=== PATIENT | female | born 2000 | race Caucasian/White ===

== ENCOUNTER 2020-04-24 16:58 | Inpatient (IN) | payer OTHER, SELFPAY ==
[2020-04-24] VITALS (8 sets, daily range): BP systolic 101–146; BP diastolic 58–90; PULSE 71–127; RESP 16–26; TEMP 36.3–37.1; O2SAT 99–100; BMI 28.9
--- NOTE | ~2020-04-24 | XR_ITS ---
EXAMINATION: XR chest 2V DATE: 04/24/2020 18:21 INDICATION: Chest pain and shortness of breath TECHNIQUE: PA and lateral views of the chest were obtained. COMPARISON: Chest radiograph dated 06/04/2017 FINDINGS: The lungs remain clear with no focal airspace opacities, pulmonary edema, pleural effusion or pneumot horax. The cardiomediastinal silhouette is normal. Visualized bones and soft tissues are unremarkable . IMPRESSION: 1. Normal chest radiograph. Reviewed, dictated and finalized at location H. CTOR MOTION PICTURE IMPRESSION: 1. Normal chest radiograph.
--- NOTE | ~2020-04-24 | CT_ITS ---
EXAMINATION: CT brain wo con DATE: 04/24/2020 18:15 INDICATION: Headache and blurry vision TECHNIQUE: Computed tomography (CT) of the head was performed without intravenous contrast. Sagittal and coronal reconstructions were performed. The mA was adjusted according to patient size. Iterative reconstruction technique was employed. The dose-length product was 605.33 mGy-cm. COMPARISON: None FINDINGS: No acute intracranial hemorrhage, acute infarction or abnormal extra axial fluid collection. Ventricl es are normal and symmetric. No mass/mass effect. The orbits, paranasal sinuses and mastoid air cells are normal. IMPRESSION: 1. Normal head CT. Reviewed, dictated and finalized at location H. OGICAL TECHNICIAN IMPRESSION: 1. Normal head CT.
[2020-04-24 17:13] LABS: Glucose Point of Care 362 (65-105)
--- NOTE | 2020-04-24 17:31 | ECG_ITS ---
Measurements Intervals [place] Rate: 80 P: -2 MD: 128 QRS: 30 QRSD: 96 T: 28 QT: 413 QTc: 479 Interpretive Statements SINUS RHYTHM INCOMPLETE RIGHT BUNDLE BRANCH BLOCK NONSPECIFIC T-WAVE ABNORMALITY- ANTERIOR LEADS BASELINE WANDER- V5 BORDERLINE ECG Electronically Signed On 04-25-2020 8:24:56 LEAD DESIGNER by Errol Corado D.O.
[2020-04-24 17:41] LABS: Basophils Absolute Auto 0.1 K/mm3 (0.0-0.1); Basophils Percent Auto 0.7 % (0.2-1.2); Hematocrit 47.8 % (37.0-47.0); Hemoglobin 16.3 g/dL (12.0-15.0); Immature Granulocyte Absolute 0.05 K/mm3 (0.00-0.031); Immature Granulocyte Percent A 0.3 % (0-0.5); Lymphocytes Absolute Auto 2.21 K/mm3 (0.9-3.2); Mean Corpuscular HGB Conc 34.1 g/dl (32-36); Mean Corpuscular Volume 87.9 fl (80-100); Mean Platelet Volume 9.7 fl (7.4-10.4); Monocytes Absolute Auto 0.5 K/mm3 (0.1-0.6); Monocytes Percent Auto 3.5 % (2.6-8.5); Neutrophils Absolute Auto 11.8 K/mm3 (1.3-6.7); Neutrophils Percent Auto 80.5 % (45.5-73.1); Platelet Count Result 438 k/mm3 (150-375); Red Blood Count 5.44 M/mm3 (4.2-5.4); Red Cell Distribution Width 12.1 % (11.5-14.5); White Blood Count 14.7 K/mm3 (4.5-10.0)
[2020-04-24 17:50] LABS: Alveolar/Arterial O2 Gradient 13.1 mmHg; Base Excess ABG -19.1 mEq/l (+/-2.0); Carboxyhemoglobin 0.7 % THb (0-2.0); Fractional Inspired Oxygen 21 %; Methemoglobin ABG 0.5 %THb (0-1.5); Modified Allen's Test Pass; Oxygen Content ABG 21.5 %vol (16.0-22.0); Oxygen Saturation ABG 97.2 % (95.0-100.0); Oxyhemoglobin 96.7 % THb (90.0-100.0); PCO2 ABG 19.3 mmHg (35.0-45.0); PO2 ABG 113.5 mmHg (80.0-100.0); Reduced Hemoglobin 2.1 %THb (0-5.0); Site Drawn RIGHT RADIAL; Total Hemoglobin 15.7 g/dL (12.0-18.0); pH ABG 7.178 (7.350-7.450)
--- NOTE | 2020-04-24 17:50 | ED.RECABL ---
HPI - Recheck/Abnormal Lab/Rx General Chief Complaint: Recheck/Abnormal Lab/Rx Stated Complaint: dka? Time Seen by Provider: 04/24/20 17:07 Source: patient Mode of arrival: wheelchair Limitations: no limitations History of Present Illness HPI narrative: This is a 20 year female that presents to the ER for nausea and vomiting today. Reports she thinks she is in DKA. Reports chest pain and shortness of breath. Reports her blood sugar has been in the 300s. Reports she has had a headache today with associated blurry vision. Denies fever, cough, abdominal pain, dysuria, hematuria, numbness or weakness. Related Data Home Medications Medication Instructions Recorded Confirmed insulin glargine [Lantus Solostar 50 unit SUBCUT HS 04/24/20 U-100 Insulin] insulin lispro [Admelog SoloStar unit SUBCUT 04/24/20 U-100 Insulin] norgestimate-ethinyl estradiol tablet 04/24/20 [Tri-Sprintec (28)] pen needle, diabetic [BD Mikayla 2nd 04/24/20 04/24/20 Gen Pen Needle] Allergies Allergy/AdvReac Type Severity Reaction Status Date / Time No Known Allergies Allergy Mild Unverified 04/24/20 17:04 Review of Systems Review of Systems: Narrative: CONSTITUTIONAL: Denies fever EYES: Reports visual changes ENT: Denies congestion, sore throat CARDIOVASCULAR: Reports chest pain RESPIRATORY: Reports dyspnea. Denies cough GASTROINTESTINAL: Reports nausea, vomiting. Denies abdominal pain GENITOURINARY: Denies dysuria or hematuria. All systems reviewed & are unremarkable except as noted in HPI and below PMFSH Past Medical History Medical History (Updated 04/24/20 @ 19:36 by Jemma Toney PA-C) History of type 1 diabetes mellitus Social History Social History (Updated 04/24/20 @ 18:01 by Jemma Toney PA-C) Smoking status: Current every day smoker Tobacco type: e-cigarettes/vaping Alcohol intake: never Substance use: current Substance use type: marijuana Gender identity (if verbalized by the patient): Female Exam Narrative: Exam Narrative: GENERAL: Well-appearing, well-nourished, and in no acute distress. HEAD: Normocephalic, atraumatic. EYES: PERRLA and EOMI. ENT: Nares clear, no rhinorrhea or epistaxis. Mucous membranes moist. Oropharynx without tonsillar hypertrophy exudate or other lesions. Bilateral TMs pearly perdomo non-bulging NECK: Supple. No adenopathy or masses. CHEST: Clear to auscultation. No respiratory distress. No wheezes rales or rhonchi HEART: Regular rate and rhythm. No murmur heard. Normal peripheral pulses. ABDOMEN: Soft, nontender, nondistended, normal active bowel sounds. No CVA tenderness EXTREMITIES: Normal range of motion. No edema. Strength equal in bilateral upper and lower extremities (5/5) SKIN: Warm, dry, no rash. NEURO: No focal deficits. Alert and oriented x3. Cranial nerves II through XII grossly intact. Normal [id number]-dsve PSYCH: Normal mood and affect Course Consultations Consultation #1: poke with hospitalist about patient and work-up who accepts admission. Date: 04/24/20 Time: 19:40 Consultation #2: Spoke with Dr. Holland who will consult Date: 04/24/20 Time: 19:41 Vital Signs Vital signs: Vital Signs Temperature 97.3 F L 04/24/20 17:01 Pulse Rate 127 H 04/24/20 17:01 Respiratory Rate 18 04/24/20 17:01 Blood Pressure 146/90 H 04/24/20 17:01 Pulse Oximetry 100 04/24/20 17:01 Temperature 98.1 F 04/24/20 19:15 Pulse Rate 71 04/24/20 19:15 Respiratory Rate 16 04/24/20 19:15 Blood Pressure 112/77 04/24/20 19:15 Pulse Oximetry 100 04/24/20 19:15 MDM - Recheck/Abnormal Lab/Rx MDM Narrative Medical decision making narrative: Patient presents to the emergency department for nausea and vomiting today. Was also reporting chest pain and shortness of breath. Was reporting a headache associated with blurry vision. Tachycardic and hypertensive upon arrival, this normalized with IV fluid administration. She is afebrile and nontoxic-appeari
[2020-04-24 17:51] LABS: Device ROOM AIR
[2020-04-24 17:53] LABS: Alanine Aminotransferase 21 U/L (4-35); Albumin Level 5.2 g/dL (3.5-5.1); Alkaline Phosphatase 129 U/L (38-126); Anion Gap 31 mmol/L (8-16); Aspartate Amino Transferase 28 U/L (14-36); Bilirubin,Total 0.8 mg/dL (0.2-1.3); Blood Urea Nitrogen 9 mg/dL (7-17); Calcium 10.1 mg/dL (8.4-10.2); Carbon Dioxide 6 mmol/L (22-30); Chloride 98 mmol/L (98-107); Estimated CRCL calculation 91 ml/min; Estimated Glomerular Filt Rate > 60; Glucose 403 mg/dL (65-105); Magnesium 1.9 mg/dL (1.6-2.3); Phosphorus 4.7 mg/dL (2.5-4.5); Potassium 4.5 mmol/L (3.4-5.0); Sodium 135 mmol/L (137-145)
[2020-04-24 17:54] LABS: INR 1.1; Prothrombin Time 14.3 Seconds (11.1-14.7)
[2020-04-24 17:55] LABS: Partial Thromboplastin Time 28.5 SECONDS (22.3-36.8)
[2020-04-24 18:05] LABS: D Dimer 0.27 ug/mL (<0.48)
[2020-04-24] MEDS: INSULIN HUMAN REGULAR (*BKC) 100 UNITS/ML 8 UNITS IV PUSH (18:06)
[2020-04-24] MEDS: SODIUM CHLORIDE 0.9% IV 1,000 ML 999 ML IV CONT ×2 (18:06→18:37)
[2020-04-24 18:07] LABS: Troponin I < 0.012 ng/mL (0.000-0.034)
--- NOTE | 2020-04-24 18:10 | PC.NURSE ---
Patient to CT at this time.
[2020-04-24 18:21] LABS: Add Urine Microscopic? YES; Appearance Urine Clear (Clear); Bilirubin Urine Negative (Negative); Blood Urine Negative (Negative); Color Urine Yellow (Yellow); Glucose Urine UA 3+ mg/dL (Negative); Ketones Urine 2+ mg/dL (Negative); Leukocyte Esterase Ur Negative LEU/UL (Negative); Nitrate Urine Negative (Negative); Protein Urine 2+ mg/dL (Negative); RBC Urine 0-2 /hpf (0-2); Specific Grav Ur 1.024 (1.001-1.035); Squamous Epithelial Cell Urine Rare /hpf (Few); Urobilinogen Urine Negative mg/dL (<2.0); WBC Urine 0-3 /hpf
[2020-04-24 18:28] LABS: Beta-Hydroxybutyrate/Acetoacetate 7.12 mmol/L (0.02-0.27)
--- NOTE | 2020-04-24 19:57 | PM.IMHP ---
H&P: HPI History of Present Illness Date/Time: 04/24/20 19:57 Chief complaint: DKA, acute dehydration Narrative: This is a 20 year old type I Diabetic female with known depression who presented to the hospital with a complaint of nausea and vomiting #8 times today. She admits that she hasn't been checking her blood sugars recently as she has been very depressed. On arrival to the ER she was complaining of chest discomfort, shortness of breath, and headache which have now resolved. She is known to have had COVID-19 about 1 month ago. She denies any fevers, chills, dysuria, hematuria, dizziness, palpitations, diarrhea, rectal bleeding or leg swelling. She has had some mild abdominal discomfort with her vomiting. Associated symptoms include polyuria. She believes that her blood sugars have been in the 300s. On arrival to the ER she was found to be dehydrated with an elevated BG of 403 mg/dl and in DKA w/ an elevated anion gap metabolic acidosis and positive serum ketones. The patient was treated with 3L of IV NS and started on IV insulin. Neon Glass Bender, Dr. Holland has been consulted. We have been asked to admit her to the hospital for further care. She has no other complaints at this time. Review of Systems Review of Systems: All systems reviewed & are unremarkable except as noted in HPI and below PMFSH Past Medical History Medical History History of type 1 diabetes mellitus Family History Family History Father Diabetes mellitus Social History Social History Smoking status: Current every day smoker Tobacco type: e-cigarettes/vaping Alcohol intake: never Substance use: current Substance use type: marijuana Gender identity (if verbalized by the patient): Female Spiritual care concerns: No Comments No past surgical history. Meds Home Medications and Allergies Home Medications Medication Instructions Recorded Confirmed Type insulin glargine [Lantus Solostar 50 unit SUBCUT HS 04/24/20 04/24/20 History U-100 Insulin] insulin lispro [Admelog SoloStar See Protocol SUBCUT AC 04/24/20 04/24/20 History U-100 Insulin] norgestimate-ethinyl estradiol 1 tablet PO DAILY 04/24/20 04/24/20 History [Tri-Sprintec (28)] pen needle, diabetic [BD Mikayla 2nd 04/24/20 04/24/20 History Gen Pen Needle] Allergies Allergy/AdvReac Type Severity Reaction Status Date / Time No Known Allergies Allergy Mild Unverified 04/24/20 17:04 Vital Signs Vital Signs - 24 hr 04/24/20 17:01 04/24/20 18:02 04/24/20 19:15 Temperature 36.3 C L 36.6 C 36.7 C Pulse Rate 127 H 81 71 Respiratory Rate 18 18 16 Blood Pressure 146/90 H 137/83 112/77 Pulse Oximetry 100 99 100 Exam Const: General: cooperative, alert, awake, ill appearing and other (dehydrated+ ) Nutritional Appearance: well nourished Orientation/consciousness: patient oriented x3 HENMT: Head: normal to inspection General nose exam: Normal external nose present Face and sinus: normal facial exam Mouth: Yes Normal oral and palatal mucosa present and Yes oropharynx normal Eyes: Pupils: Equal, round and reactive pupils present EOM: EOMs intact bilaterally Neck: Neck: supple and no JVD Thyroid: thyroid normal Lymphatic: lymphadenopathy not noted Resp: Effort & Inspection: normal respiratory effort Auscultation: clear to auscultation bilaterally Cardio: Rate: tachycardic Rhythm: regular rhythm Heart sounds: no murmurs GI: Inspection: normal to inspection Auscultation: normal bowel sounds Skin: General skin exam: normal color and no rashes or lesions noted Neuro: General: patient oriented x3 Cranial nerves: Yes CN's II-XII intact bilaterally and Yes Equal, round and reactive pupils present Speech: normal speech Motor exam (neuro): 5/5 motor strength present throughout Sensory
[2020-04-24] MEDS: LACTATED RINGERS 1,000 ML 999 ML IV CONT (20:10)
[2020-04-24] MEDS: INSULIN HUMAN REGULAR (*BKC) 100 UNITS in SODIUM CHLORIDE 0.9% IV 99 ML IV CONT (20:11)
[2020-04-24 20:26] LABS: Glucose Point of Care 276 (65-105)
[2020-04-24 21:11] LABS: Glucose Point of Care 229 (65-105)
--- NOTE | 2020-04-24 21:11 | PC.NURSE ---
Patient up to bathroom prior to going up to floor.
[2020-04-24 21:38] LABS: Glucose Point of Care 227 (65-105)
[2020-04-24] MEDS: KCL 20 MEQ/D5/0.45% SOD CHL 1,000 ML 150 ML IV CONT (21:48)
--- NOTE | 2020-04-24 21:59 | ADMGEN ---
This patient, Rama Fuchs, was admitted to [facility] at 2122. Patient/family oriented to hospital policies and general routines including ID bracelet, bed and alarms, visiting hours, pain management, procedures, bathroom and other care routines, personal items, smoking policy, room service/diet, and visiting hours. Information on how to activate the Rapid Response Team has been discussed. Patient/Family are encouraged to report perceived risks to care and to ask questions if they do not understand what they are told or what they should do.
[2020-04-24 22:24] LABS: Anion Gap 19 mmol/L (8-16); Blood Urea Nitrogen 5 mg/dL (7-17); Calcium 8.5 mg/dL (8.4-10.2); Carbon Dioxide 11 mmol/L (22-30); Chloride 105 mmol/L (98-107); Estimated CRCL calculation 132 ml/min; Estimated Glomerular Filt Rate > 60; Glucose 218 mg/dL (65-105); Potassium 3.2 mmol/L (3.4-5.0); Sodium 135 mmol/L (137-145)
[2020-04-24 22:36] LABS: Glucose Point of Care 208 (65-105)
[2020-04-24 22:56] LABS: Alveolar/Arterial O2 Gradient 14.5 mmHg; Base Excess ABG -14.9 mEq/l (+/-2.0); Fractional Inspired Oxygen 21 %; HCO3 ABG 10.2 mEq/l (22.0-26.0); Oxygen Saturation ABG 97.3 % (95.0-100.0); Oxyhemoglobin 96.8 % THb (90.0-100.0); PO2 ABG 107.1 mmHg (80.0-100.0); Total Hemoglobin 13.9 g/dL (12.0-18.0)
[2020-04-24 23:00] LABS: Device ROOM AIR; Modified Allen's Test Pass; PCO2 ABG 23.5 mmHg (35.0-45.0); Site Drawn RIGHT RADIAL; pH ABG 7.256 (7.350-7.450)
[2020-04-24 23:36] LABS: Glucose Point of Care 183 (65-105)
[2020-04-25] VITALS (11 sets, daily range): BP systolic 74–120; BP diastolic 34–80; PULSE 34–100; RESP 14–18; TEMP 36.5–36.9; O2SAT 95–100
[2020-04-25 00:34] LABS: Glucose Point of Care 163 (65-105)
[2020-04-25 01:24] LABS: Glucose Point of Care 158 (65-105)
[2020-04-25 01:46] LABS: Glucose Point of Care 145 (65-105)
--- NOTE | 2020-04-25 01:49 | ECG_ITS ---
Measurements Intervals [place] Rate: 75 P: 8 SC: 145 QRS: 16 QRSD: 99 T: 1 QT: 419 QTc: 471 Interpretive Statements SINUS RHYTHM BORDERLINE T WAVE ABNORMALITY- ANT/INF LEADS BORDERLINE ECG Electronically Signed On 04-25-2020 8:33:06 LABORATORY TECHNOLOGIST by Errol Corado D.O.
--- NOTE | 2020-04-25 01:53 | PC.NURSE ---
Kier Operator and I were in patient's room getting her 0130 BMP when patient started having dizziness, diaphoresis and nausea/vomiting. Heart rate was in the 30's and blood pressure dropped to 74/34. Dr. Ramos was notified and a 500 ml fluid bolus and an EKG were ordered. EKG showed normal sinus rhythm. Patient started feeling better at 0145 and heart rate normalized and blood pressure was 95/52 at start of fluid bolus. Dr. Ramos was updated.
[2020-04-25] MEDS: SODIUM CHLORIDE 0.9% IV 500 ML IV CONT (02:00)
[2020-04-25 02:26] LABS: Anion Gap 12 mmol/L (8-16); Blood Urea Nitrogen 5 mg/dL (7-17); Calcium 8.6 mg/dL (8.4-10.2); Carbon Dioxide 13 mmol/L (22-30); Chloride 113 mmol/L (98-107); Estimated CRCL calculation 155 ml/min; Estimated Glomerular Filt Rate > 60; Glucose 159 mg/dL (65-105); Potassium 3.4 mmol/L (3.4-5.0); Sodium 138 mmol/L (137-145)
[2020-04-25 02:31] LABS: Glucose Point of Care 155 (65-105)
[2020-04-25] MEDS: INSULIN HUMAN REGULAR (*BKC) 100 UNITS in SODIUM CHLORIDE 0.9% IV 99 ML IV CONT (03:45)
[2020-04-25 04:06] LABS: Glucose Point of Care 133 (65-105)
[2020-04-25 04:38] LABS: Glucose Point of Care 112 (65-105)
[2020-04-25] MEDS: INSULIN GLARGINE (*BKC) 100 UNITS/ML 20 UNITS SUB-Q (04:51)
[2020-04-25 05:44] LABS: Glucose Point of Care 68 (65-105)
[2020-04-25 06:15] LABS: Basophils Absolute Auto 0.1 K/mm3 (0.0-0.1); Basophils Percent Auto 0.5 % (0.2-1.2); Eosinophils Absolute Auto 0.1 K/mm3 (0-0.3); Eosinophils Percent Auto 0.6 % (0-4.4); Hematocrit 35.4 % (37.0-47.0); Hemoglobin 12.5 g/dL (12.0-15.0); Immature Granulocyte Absolute 0.03 K/mm3 (0.00-0.031); Immature Granulocyte Percent A 0.3 % (0-0.5); Immature Platelet Fraction Pct 4.7 % (0.9-11.2); Lymphocytes Absolute Auto 2.72 K/mm3 (0.9-3.2); Lymphocytes Percent Auto 26.8 % (18.3-44.2); Mean Corpuscular HGB Conc 35.3 g/dl (32-36); Mean Corpuscular Hemoglobin 29.1 pg (26-34); Mean Corpuscular Volume 82.5 fl (80-100); Monocytes Absolute Auto 0.6 K/mm3 (0.1-0.6); Monocytes Percent Auto 5.7 % (2.6-8.5); Neutrophils Absolute Auto 6.7 K/mm3 (1.3-6.7); Neutrophils Percent Auto 66.1 % (45.5-73.1); Platelet Count Result 270 k/mm3 (150-375); Red Blood Count 4.29 M/mm3 (4.2-5.4); Red Cell Distribution Width 11.7 % (11.5-14.5); White Blood Count 10.2 K/mm3 (4.5-10.0)
[2020-04-25 06:23] LABS: Glucose Point of Care 129 (65-105)
[2020-04-25 06:40] LABS: Anion Gap 10 mmol/L (8-16); Blood Urea Nitrogen 3 mg/dL (7-17); Calcium 8.3 mg/dL (8.4-10.2); Carbon Dioxide 15 mmol/L (22-30); Chloride 115 mmol/L (98-107); Estimated CRCL calculation 184 ml/min; Estimated Glomerular Filt Rate > 60; Glucose 77 mg/dL (65-105); Potassium 2.9 mmol/L (3.4-5.0); Sodium 140 mmol/L (137-145)
[2020-04-25 08:08] LABS: Glucose Point of Care 172 (65-105)
--- NOTE | 2020-04-25 08:25 | P.CONIN_ITS ---
Assessment and Plan Assessment and plan (1) DKA (diabetic ketoacidoses): Qualifiers: Diabetes mellitus complication detail: without coma Diabetes mellitus type: type 1 Qualified Code(s): E10.10 - Type 1 diabetes mellitus with ketoacidosis without coma Code(s): E11.10 - Type 2 diabetes mellitus with ketoacidosis without coma Status: Acute Assessment and Plan: * Resolved with overnight insulin drip * Resume diabetic diet * Home if diet tolerated and sugars remain controlled and potassium improves * OK to downgrade from ICU status \ (2) Acute dehydration: Code(s): E86.0 - Dehydration Status: Acute Assessment and Plan: * Due to DKA * Resolved (3) Leukocytosis: Qualifiers: Leukocytosis type: unspecified Qualified Code(s): D72.829 - Elevated white blood cell count, unspecified Code(s): D72.829 - Elevated white blood cell count, unspecified Status: Acute Assessment and Plan: * Due to DKA, hemoconcentration * Improved (4) Thrombocytosis: Code(s): D47.3 - Essential (hemorrhagic) thrombocythemia Status: Acute Assessment and Plan: * Due to hemoconcentration, possible mild underlying deficiency anemia * Resolved with hydration * Pursue further evaluation as outpatient (5) Depression: Qualifiers: Depression Type: unspecified Qualified Code(s): F32.9 - Major depressive disorder, single episode, unspecified Code(s): F32.9 - Major depressive disorder, single episode, unspecified Status: Acute Assessment and Plan: * Recurrent episodes since adolescents * Prefers non pharmacologic therapy but has not pursued that * Did not tolerate prior antidepressant therapy * Encouraged to seek counseling and pursue healthy lifestyle * She will follow-up with her primary care provider (6) Nicotine abuse: Code(s): Z72.0 - Tobacco use Status: Acute Assessment and Plan: * Encouraged her discontinue vaping and utilize nicotine lozenges (7) Cannabis use disorder, mild, abuse: Code(s): F12.10 - Cannabis abuse, uncomplicated Status: Acute Assessment and Plan: * Uses cannabis nightly to sleep * Encouraged moderation (8) Hypokalemia: Code(s): E87.6 - Hypokalemia Status: Acute Assessment and Plan: * Likely due to saline diuresis and recent poor oral intake * P.o. replacement * Follow-up labs this afternoon Hotel Housekeeper Consult Note Consult date: 04/25/20 Time Seen: 08:25 HPI: Rama Fuchs is a 20 year old female with type 1 diabetes since age 10. She has had intermittent episodes of depression. She has been depressed but not suicidal over the past month. She was taking her Lantus for rarely checked her sugars or trigger sliding scale. On April 24 she began having moderate to severe generalized abdominal cramping with nausea. She checked her sugar and it was over 400. She presented to the emergency department or her initial blood sugar was 402. She was treated overnight with IV fluids and insulin drip. She is feeling much better this morning. Her appetite has returned. She is awaiting breakfast. She denied any further abdominal discomfort or nausea. Denied dizziness lightheadedness blurred vision chest pain shortness of breath palpitations syncope presyncope diarrhea constipation melena hematochezia dysuria hematuria. She has had urinary frequency over the last month and has lost weight. Her appetite has been poor over the last month. She vapes nicotine. She smokes marijuana jackh
--- NOTE | 2020-04-25 08:25 | WPDCNINT ---
Assessment and Plan Assessment and plan (1) DKA (diabetic ketoacidoses): Qualifiers: Diabetes mellitus complication detail: without coma Diabetes mellitus type: type 1 Qualified Code(s): E10.10 - Type 1 diabetes mellitus with ketoacidosis without coma Code(s): E11.10 - Type 2 diabetes mellitus with ketoacidosis without coma Status: Acute Assessment and Plan: Resolved with overnight insulin drip Resume diabetic diet Home if diet tolerated and sugars remain controlled and potassium improves OK to downgrade from ICU status \ (2) Acute dehydration: Code(s): E86.0 - Dehydration Status: Acute Assessment and Plan: Due to DKA Resolved (3) Leukocytosis: Qualifiers: Leukocytosis type: unspecified Qualified Code(s): D72.829 - Elevated white blood cell count, unspecified Code(s): D72.829 - Elevated white blood cell count, unspecified Status: Acute Assessment and Plan: Due to DKA, hemoconcentration Improved (4) Thrombocytosis: Code(s): D47.3 - Essential (hemorrhagic) thrombocythemia Status: Acute Assessment and Plan: Due to hemoconcentration, possible mild underlying deficiency anemia Resolved with hydration Pursue further evaluation as outpatient (5) Depression: Qualifiers: Depression Type: unspecified Qualified Code(s): F32.9 - Major depressive disorder, single episode, unspecified Code(s): F32.9 - Major depressive disorder, single episode, unspecified Status: Acute Assessment and Plan: Recurrent episodes since adolescents Prefers non pharmacologic therapy but has not pursued that Did not tolerate prior antidepressant therapy Encouraged to seek counseling and pursue healthy lifestyle She will follow-up with her primary care provider (6) Nicotine abuse: Code(s): Z72.0 - Tobacco use Status: Acute Assessment and Plan: Encouraged her discontinue vaping and utilize nicotine lozenges (7) Cannabis use disorder, mild, abuse: Code(s): F12.10 - Cannabis abuse, uncomplicated Status: Acute Assessment and Plan: Uses cannabis nightly to sleep Encouraged moderation (8) Hypokalemia: Code(s): E87.6 - Hypokalemia Status: Acute Assessment and Plan: Likely due to saline diuresis and recent poor oral intake P.o. replacement Follow-up labs this afternoon Roof Fixer Consult Note Consult date: 04/25/20 Time Seen: 08:25 HPI: Rama Fuchs is a 20 year old female with type 1 diabetes since age 10. She has had intermittent episodes of depression. She has been depressed but not suicidal over the past month. She was taking her Lantus for rarely checked her sugars or trigger sliding scale. On April 24 she began having moderate to severe generalized abdominal cramping with nausea. She checked her sugar and it was over 400. She presented to the emergency department or her initial blood sugar was 402. She was treated overnight with IV fluids and insulin drip. She is feeling much better this morning. Her appetite has returned. She is awaiting breakfast. She denied any further abdominal discomfort or nausea. Denied dizziness lightheadedness blurred vision chest pain shortness of breath palpitations syncope presyncope diarrhea constipation melena hematochezia dysuria hematuria. She has had urinary frequency over the last month and has lost weight. Her appetite has been poor over the last month. She vapes nicotine. She smokes marijuana nightly to help her sleep. She does not abuse alcohol or other recreational drugs. She sees an esthetician and manager medical [facility] at [place]. She is in the process of changing primary care providers. Review of Systems Review of Systems: All systems reviewed & are unremarkable except as noted in HPI and below [facility] Past Medical History Medical History (Updated 04/25/20 @ 08:36 by Jaden Eller MD) Bj
[2020-04-25] MEDS: POTASSIUM CHLORIDE 20 MEQ PACKET (FOR LIQUID) 40 MEQ PO (10:40)
--- NOTE | 2020-04-25 11:58 | PM.DS ---
DS: Admitting Diagnosis Admitting Diagnosis Admitting Diagnosis: DKA, acute dehydration DS: Discharge Diagnosis Discharge Diagnosis (1) Hypokalemia: Code(s): E87.6 - Hypokalemia Status: Acute (2) DKA (diabetic ketoacidoses): Qualifiers: Diabetes mellitus complication detail: without coma Diabetes mellitus type: type 1 Qualified Code(s): E10.10 - Type 1 diabetes mellitus with ketoacidosis without coma Code(s): E11.10 - Type 2 diabetes mellitus with ketoacidosis without coma Status: Acute (3) Acute dehydration: Code(s): E86.0 - Dehydration Status: Acute DS: Summary Time Spent with Patient Time attestation: Total time spent providing and/or coordinating discharge services: DS: Data Data Completed and Pending Labs on day of discharge: Labs from last 24 hours 04/25/20 04/25/20 04/25/20 08:05 06:21 05:42 WBC 10.2 H RBC 4.29 Hgb 12.5 D Hct 35.4 L MCV 82.5 D MCH 29.1 MCHC 35.3 RDW 11.7 Plt Count 270 MPV 10.0 Immature Gran % (Auto) 0.3 Neut % (Auto) 66.1 Lymph % (Auto) 26.8 Col[place] % (Auto) 5.7 Eos % (Auto) 0.6 Baso % (Auto) 0.5 Lymph # (Auto) 2.72 [place] # (Auto) 0.6 Eos # (Auto) 0.1 Baso # (Auto) 0.1 Abs Immat Gran (auto) 0.03 Absolute Neuts (auto) 6.7 Absolute Nucleated RBC 0.0 Nucleated RBC % 0.0 % Immature Plt Fraction 4.7 PT INR APTT D-Dimer Puncture Site ABG pH ABG pCO2 ABG pO2 ABG PO2/FiO2 Ratio ABG HCO3 ABG O2 Saturation ABG O2 Content ABG Base Excess A-a Gradient Oxyhemoglobin Carboxyhemoglobin Methemoglobin Reduced Hemoglobin Total Hemoglobin O2 Delivery Device O2 Liters/Min FiO2 Sodium Potassium Chloride Carbon Dioxide Anion Gap BUN Creatinine Estim Creat Clear Calc Estimated GFR Glucose POC Capillary Glucose 172 H 129 H Calcium Phosphorus Magnesium Total Bilirubin AST ALT Alkaline Phosphatase Troponin I Total Protein Albumin Beta-Hydroxybutyrate/Acetoacetate Urine Color Urine Appearance Urine pH Ur Specific [place] Urine Protein Urine Glucose (UA) Urine Ketones Ur Blood (Man) Urine Nitrate Urine Bilirubin Urine Urobilinogen Leukocyte Esterase Rfl Urine RBC Urine WBC Ur Squamous Epith Cells Hyaline Casts 04/25/20 04/25/20 04/25/20 05:42 05:38 04:36 WBC RBC Hgb Hct MCV MCH MCHC RDW Plt Count MPV Immature Gran % (Auto) Neut % (Auto) Lymph % (Auto) [place] % (Auto) Eos % (Auto) Baso % (Auto) Lymph # (Auto) [place]lier # (Auto) Eos # (Auto) Baso # (Auto) Abs Immat Gran (auto) Absolute Neuts (auto) Absolute Nucleated RBC Nucleated RBC % % Immature Plt Fraction PT INR APTT D-Dimer Puncture Site ABG pH ABG pCO2 ABG pO2 ABG PO2/FiO2 Ratio ABG HCO3 ABG O2 Saturation ABG O2 Content ABG Base Excess A-a Gradient Oxyhemoglobin Carboxyhemoglobin Methemoglobin Reduced Hemoglobin Total Hemoglobin O2 Delivery Device O2 Liters/Min FiO2 Sodium 140 Potassium 2.9 L Chloride 115 H Carbon Dioxide 15 L Anion Gap 10 BUN 3 L Creatinine 0.40 L Estim Creat Clear Calc 184 Estimated GFR > 60 Glucose 77 POC Capillary Glucose 68 112 H Calcium 8.3 L Phosphorus Magnesium Total Bilirubin AST ALT Alkaline Phosphatase Troponin I Total Protein Albumin Beta-Hydroxybutyrate/Acetoacetate Urine Color Urine Appearance Urine pH Ur Specific [place] Urine Protein Urine Glucose (UA) Urine Ketones Ur Blood (Man) Urine Nitrate Urine Bilirubin Urine Urobilinogen Leukocyte Esterase Rfl Urine RBC Urine WBC Ur Squamous Epit
[2020-04-25 12:05] LABS: Glucose Point of Care 286 (65-105)
[2020-04-25] MEDS: POTASSIUM CHLORIDE 20 MEQ TABLET 40 MEQ PO (12:15)
[2020-04-25] MEDS: INSULIN ASPART (*BKC) 100 UNITS/ML SUB-Q (12:15)
== END 2020-04-25 14:18 | disposition home or self-care (01) | DRG 420 ==
LOC: ANHED 19:41 → ANHICU 20:00 → ANHIMU 04-25 00:32 → ANHICU 04-30 10:43 → ANHIMU 04-30 10:43
PROVIDERS: Physician Assistant; Admitting Provider Family Medicine; Emergency Provider Emergency Medicine; Referring Provider Family Medicine; Visit Provider Internal Medicine
DX: E10.10 Type 1 diabetes mellitus with ketoacidosis without coma (principal); E86.0 Dehydration; D72.829 Elevated white blood cell count, unspecified; D47.3 Essential (hemorrhagic) thrombocythemia; E87.6 Hypokalemia; F32.9 Major depressive disorder, single episode, unspecified; F12.10 Cannabis abuse, uncomplicated; F17.290 Nicotine dependence, other tobacco product, uncomplicated; Z23 Encounter for immunization; Z79.4 Long term (current) use of insulin; Z86.19 Personal history of other infectious and parasitic diseases
CPT/HCPCS: 36415; 36600; 70450; 71046; 80048; 80053; 81001; 81025; 82010; 82375; 82805; 82948; 83050; 83735; 84100; 84484; 85025; 85055; 85380; 85610; 85730; 90471; 90653; 93005; 96365; 96375; 99291; A9270; G0008; J0131; J1815; J3480; J7030; J7040; J7120

== ENCOUNTER 2022-04-22 11:04 | Observation (INO) | payer OTHER, SELFPAY ==
[2022-04-22] VITALS (10 sets, daily range): BP systolic 118–149; BP diastolic 60–100; PULSE 89–125; RESP 16–20; TEMP 36.6–36.8; O2SAT 99–100; BMI 29.8
[2022-04-22 11:15] LABS: Glucose Point of Care 425 mg/dl (65-105)
[2022-04-22 12:00] LABS: Alveolar/Arterial O2 Gradient 22.8 mmHg; Base Excess ABG -15.6 mEq/l (+/-2.0); Carboxyhemoglobin 0.6 % THb (0-2.0); Fractional Inspired Oxygen 21 %; HCO3 ABG 9.1 mEq/l (22.0-26.0); Methemoglobin ABG 0.3 %THb (0-1.5); Oxygen Content ABG 19.3 %vol (16.0-22.0); Oxygen Saturation ABG 97.1 % (95.0-100.0); Oxyhemoglobin 96.4 % THb (90.0-100.0); PO2 ABG 102.4 mmHg (80.0-100.0); PO2 FiO2 Ratio Arterial Blood 4.88 %; Reduced Hemoglobin 2.7 %THb (0-5.0); Total Hemoglobin 14.2 g/dL (12.0-18.0)
[2022-04-22 12:06] LABS: PCO2 ABG 20.5 mmHg (35.0-45.0); pH ABG 7.266 (7.350-7.450)
[2022-04-22 12:07] LABS: Device ROOM AIR; Modified Allen's Test Pass; Site Drawn RIGHT RADIAL
[2022-04-22 12:16] LABS: Alveolar/Arterial O2 Gradient 28.8 mmHg; Base Excess ABG -13.9 mEq/l (+/-2.0); Fractional Inspired Oxygen 21 %; HCO3 ABG 10.2 mEq/l (22.0-26.0); Oxygen Content ABG 18.9 %vol (16.0-22.0); Oxygen Saturation ABG 96.9 % (95.0-100.0); Oxyhemoglobin 96.3 % THb (90.0-100.0); PO2 ABG 95.7 mmHg (80.0-100.0); PO2 FiO2 Ratio Arterial Blood 4.56 %; Total Hemoglobin 13.9 g/dL (12.0-18.0); pH ABG 7.303 (7.350-7.450)
[2022-04-22 12:18] LABS: Device ROOM AIR; Modified Allen's Test Pass; PCO2 ABG 21.1 mmHg (35.0-45.0); Site Drawn LEFT RADIAL
[2022-04-22 12:26] LABS: Basophils Percent Auto 0.3 % (0.2-1.2); Eosinophils Percent Auto 0.1 % (0-4.4); Hematocrit 40.4 % (37.0-47.0); Hemoglobin 13.7 g/dL (12.0-15.0); Immature Granulocyte Absolute 0.04 K/mm3 (0.00-0.031); Immature Granulocyte Percent A 0.3 % (0-0.5); Lymphocytes Absolute Auto 0.77 K/mm3 (0.9-3.2); Lymphocytes Percent Auto 6.7 % (18.3-44.2); Mean Corpuscular HGB Conc 33.9 g/dl (32-36); Mean Corpuscular Hemoglobin 31.1 pg (26-34); Mean Corpuscular Volume 91.6 fl (80-100); Mean Platelet Volume 9.4 fl (7.4-10.4); Monocytes Absolute Auto 0.8 K/mm3 (0.1-0.6); Monocytes Percent Auto 6.9 % (2.6-8.5); Neutrophils Absolute Auto 9.9 K/mm3 (1.3-6.7); Neutrophils Percent Auto 85.7 % (45.5-73.1); Platelet Count Result 299 k/mm3 (150-375); Red Blood Count 4.41 M/mm3 (4.2-5.4); Red Cell Distribution Width 13.7 % (11.5-14.5); White Blood Count 11.5 K/mm3 (4.5-10.0)
[2022-04-22 12:28] LABS: Influenza A QL RT-PCR Positive (Negative); Influenza B QL RT-PCR Negative (Negative); RSV RNA, RT-PCR Negative (Negative); SARS-CoV-2 RNA PCR Negative
[2022-04-22] MEDS: SODIUM CHLORIDE 0.9% IV 1,000 ML 999 ML IV CONT ×3 (12:42→14:13)
[2022-04-22 12:43] LABS: Alanine Aminotransferase 17 U/L (6-35); Albumin Level 4.6 g/dL (3.5-5.1); Alkaline Phosphatase 126 U/L (38-126); Anion Gap 22 mmol/L (8-16); Aspartate Amino Transferase 24 U/L (14-36); Bilirubin,Total 0.9 mg/dL (0.2-1.3); Blood Urea Nitrogen 9 mg/dL (7-17); Calcium 9.2 mg/dL (8.4-10.2); Carbon Dioxide 10 mmol/L (22-30); Chloride 105 mmol/L (98-107); Estimated CRCL calculation 113 ml/min; Estimated Glomerular Filt Rate > 60; Glucose 364 mg/dL (65-110); Magnesium 1.8 mg/dL (1.6-2.3); Phosphorus 3.1 mg/dL (2.5-4.5); Potassium 3.8 mmol/L (3.4-5.0); Sodium 137 mmol/L (137-145)
--- NOTE | 2022-04-22 12:57 | ED.GENADULT ---
HPI - General Adult General Chief complaint: Unspecified <Jemma Toney PA-C - Last Filed: 04/22/22 16:34> Stated complaint: elevated blood sugar <VICKY Stevens Last Filed: 04/22/22 16:34> Time Seen by Provider: 04/22/22 11:30 <Jemma Toney PA-C - Last Filed: 04/22/22 16:34> Source: patient <VICKY Stevens Last Filed: 04/22/22 16:34> Mode of arrival: ambulatory <VICKY Stevens Last Filed: 04/22/22 16:34> Limitations: no limitations <VICKY Stevens Last Filed: 04/22/22 16:34> History of Present Illness HPI narrative: This is a 22 year old female that presents to the ER for nausea and vomiting. Ongoing since yesterday. Reports she has been having cold symptoms over the last 3 days with congestion, rhinorrhea, cough, and sore throat. Reports history of diabetes and was concerned she was in DKA. Her blood sugars have been elevated. Denies fever, abdominal pain or dysuria. <Jemma Toney PA-C - Last Filed: 04/22/22 16:34> Related Data Home medications: Home Medications Medication Instructions Recorded Confirmed norgestimate-ethinyl estradiol 1 tablet PO DAILY 04/24/20 01/17/22 0.18 mg/0.215mg/0.25mg-35 mcg(28)tablet (Tri-Sprintec (28)) <Jemma Toney PA-C - Last Filed: 04/22/22 16:34> Allergies/adverse reactions: Allergies Allergy/AdvReac Type Severity Reaction Status Date / Time No Known Allergies Allergy Mild Verified 04/22/22 11:17 <VICKY Stevens Last Filed: 04/22/22 16:34> Review of Systems Review of Systems: CONSTITUTIONAL: Denies fever ENT: Reports rhinorrhea, congestion, sore throat CARDIOVASCULAR: Denies chest pain RESPIRATORY: Denies dyspnea. GASTROINTESTINAL: Reports nausea, vomiting. 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 Nicotine abuse Seborrheic dermatitis of scalp Thrombocytosis Type 1 diabetes mellitus <Jemma Toney PA-C - Last Filed: 04/22/22 16:34> Surgical History Surgical History: Surgical History No pertinent past surgical history <Jemma Toney PA-C - Last Filed: 04/22/22 16:34> Family History Family History: Family History Father Diabetes mellitus Depression Hypertension Mother Hypertension Grandparent Hypertension Thyroid disease Renal cell carcinoma Grandparent Hypertension Depression <VICKY Stevens Last Filed: 04/22/22 16:34> Social History Social History: Social History (Updated 04/22/22 @ 16:24 by Adriane White NP) Social History: lives with significant [facility] living . vape [employer] Smoking status: Current every day smoker Tobacco type: e-cigarettes/vaping Alcohol intake: current Alcohol use details: socially Substance use: current Substance use type: marijuana Gender identity (if verbalized by the patient): Female Spiritual care concerns: No <VICKY Stevens Last Filed: 04/22/22 16:34> Exam Narrative: GENERAL: Well-appearing, well-nourished, and in no acute distress. HEAD: Normocephalic, atraumatic. EYES: EOMI. ENT: Mucous membranes moist. Oropharynx without tonsillar hypertrophy exudate or other lesions. Bilateral TMs pearly perdomo non-bulging NECK: Supple. No adenopathy or masses. CHEST: Clear to auscultation. No respiratory distress. No wheezes rales or rhonchi HEART: Regular rat
[2022-04-22 13:08] LABS: RBC Urine 0-2 /hpf (0-2); Squamous Epithelial Cell Urine Occasional /hpf (Few); WBC Urine 0-3 /hpf
[2022-04-22 13:10] LABS: Appearance Urine Clear (Clear); Bilirubin Urine 2+ (Negative); Blood Urine Trace-lysed (Negative); Color Urine Yellow (Yellow); Glucose Urine UA 2+ mg/dL (Negative); Ketones Urine 4+ mg/dL (Negative); Leukocyte Esterase Ur Negative LEU/UL (Negative); Nitrate Urine Negative (Negative); Protein Urine 2+ mg/dL (Negative); Specific Grav Ur 1.025 (1.001-1.035); Urobilinogen Urine 0.2 mg/dL (<2.0)
[2022-04-22 13:11] LABS: Add Urine Microscopic? YES
[2022-04-22 15:55] LABS: Anion Gap 13 mmol/L (8-16); Blood Urea Nitrogen 7 mg/dL (7-17); Calcium 7.7 mg/dL (8.4-10.2); Carbon Dioxide 10 mmol/L (22-30); Chloride 112 mmol/L (98-107); Estimated CRCL calculation 153 ml/min; Estimated Glomerular Filt Rate > 60; Glucose 200 mg/dL (65-110); Potassium 4.2 mmol/L (3.4-5.0); Sodium 135 mmol/L (137-145)
--- NOTE | 2022-04-22 16:22 | PM.IMHP ---
H&P: HPI History of Present Illness Date/Time: 04/22/22 16:22 Chief Complaint: Elevated blood sugar Narrative: This is a 22-year-old female patient with a history of diabetes type 1 insulin-dependent. The patient stated that her blood sugars have been under control recently until the last 3 days. The patient reported that over the last 3 days she has had some nasal congestion runny nose cough and sore throat. Everybody in the household has been sick. The patient has had multiple episodes of DKA in the past. It has been awhile since she has had DKA. She denies any fever chills. The patient stated the 1st couple days she had a fever and kept down with Tylenol. Her white count 11.5. Her pH was 7.266 and came up to 7.303. CO2 was 20.5 and then 21.1. Her sodium is 135. Initially her blood sugars 425 and is now 196. The patient had gotten 4 L of fluid and IV Tylenol in the emergency room as well as Tamiflu. Her beta hydroxybutyrate acid taste was 4.10. Initially her anion gap was 22 and came down to 13 after the IV fluids. The patient stated that she did take her insulin approximately 1-2 hours prior to coming to the emergency room. Chest x-ray was read as normal chest radiograph. Head CT was read as normal head CT. Initially the patient wanted to go home once her anion gap closed. I did tell her that her blood sugar could continue to run high because of illness. The patient then decided that she would stay overnight. The patient is being admitted to the observation on 04/22/2022. Review of Systems Review of Systems: See HPI All systems reviewed & are unremarkable except as noted in HPI and below Constitutional: Constitutional: Reports as per HPI and Reports no additional constitutional complaints Eyes: Eyes: Reports as per HPI and Reports no additional eye complaints ENT: Reports system reviewed and no additional complaints, except as documented and Reports Normal hearing present Cardiovascular: Cardiovascular: Reports no additional cardiovascular complaints Respiratory: Respiratory: Reports no additional respiratory complaints and Reports no additional respiratory complaints Gastrointestinal: Gastrointestinal: Reports as per HPI and Reports no additional gastrointestinal complaints Musculoskeletal: Musculoskeletal: Reports no additional musculoskeletal complaints Integumentary/Breasts: Skin/Breast: Reports system reviewed and no additional complaints, except as docu and Reports as per HPI Neurologic: Reports system reviewed and no additional complaints, except as documented, Reports as per HPI and Reports Normal hearing present Psychiatric: Psychiatric: Reports no additional psychiatric complaints and Reports as per HPI Endocrine: Endocrine: Reports no additional endocrine complaints Hematologic/Lymphatic: Hematologic/Lymphatic: Reports no additional hematologic/lymphatic complaints Allergic/Immunologic: Allergic/Immunologic: Reports no additional allergic/immunologic complaints [facility] Past Medical History Medical History (Updated 04/22/22 @ 20:17 by Adriane White NP) Anxiety BMI 28.0-28.9,adult Cannabis use disorder, mild, abuse Depression Dietary counseling and surveillance DKA (diabetic ketoacidoses) DKA (diabetic ketoacidosis) Encounter to establish care Hypokalemia 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
[2022-04-22] MEDS: OSELTAMIVIR PHOSPHATE 75 MG CAPSULE PO ×2 (16:54→20:37)
--- NOTE | 2022-04-22 17:32 | ADMGEN ---
This patient, Rama Fuchs, was admitted to 2 Medical Room 257-01. Patient/family oriented to hospital policies and general routines including ID bracelet, bed and alarms, visiting hours, pain management, procedures, bathroom and other care routines, personal items, smoking policy, room service/diet, and visiting hours. Information on how to activate the Rapid Response Team has been discussed. Patient/Family are encouraged to report perceived risks to care and to ask questions if they do not understand what they are told or what they should do.
[2022-04-22 17:49] LABS: Glucose Point of Care 196 mg/dl (65-105)
[2022-04-22] MEDS: SODIUM CHLORIDE 0.9% IV 1,000 ML 125 ML IV CONT (17:59)
[2022-04-22] MEDS: INSULIN GLARGINE (*BKC) 100 UNITS/ML 50 UNITS SUB-Q (20:36)
[2022-04-22 21:01] LABS: Glucose Point of Care 316 mg/dl (65-105)
[2022-04-22 21:04] LABS: Anion Gap 14 mmol/L (8-16); Blood Urea Nitrogen 4 mg/dL (7-17); Calcium 7.8 mg/dL (8.4-10.2); Carbon Dioxide 13 mmol/L (22-30); Chloride 106 mmol/L (98-107); Estimated CRCL calculation 189 ml/min; Estimated Glomerular Filt Rate > 60; Glucose 279 mg/dL (65-110); Potassium 3.8 mmol/L (3.4-5.0); Sodium 133 mmol/L (137-145)
[2022-04-22 21:53] LABS: Hemoglobin A1C 11.5 % (<5.7)
[2022-04-23] VITALS: PULSE 115
[2022-04-23] MEDS: BENZONATATE 100 MG CAPSULE 200 MG PO ×2 (01:39→08:59)
[2022-04-23] MEDS: SODIUM CHLORIDE 0.9% IV 1,000 ML 125 ML IV CONT (03:03)
[2022-04-23 03:42] VITALS: BP 127/79; PULSE 107; RESP 18; TEMP 37.4; O2SAT 98
[2022-04-23 04:00] VITALS: PULSE 98
[2022-04-23 04:49] LABS: Basophils Percent Auto 0.3 % (0.2-1.2); Eosinophils Percent Auto 0.2 % (0-4.4); Hematocrit 34.5 % (37.0-47.0); Hemoglobin 11.4 g/dL (12.0-15.0); Immature Granulocyte Absolute 0.04 K/mm3 (0.00-0.031); Immature Granulocyte Percent A 0.4 % (0-0.5); Lymphocytes Absolute Auto 1.87 K/mm3 (0.9-3.2); Lymphocytes Percent Auto 19.5 % (18.3-44.2); Mean Corpuscular Hemoglobin 30.6 pg (26-34); Mean Corpuscular Volume 92.7 fl (80-100); Mean Platelet Volume 9.5 fl (7.4-10.4); Monocytes Absolute Auto 1.1 K/mm3 (0.1-0.6); Monocytes Percent Auto 11.3 % (2.6-8.5); Neutrophils Absolute Auto 6.5 K/mm3 (1.3-6.7); Neutrophils Percent Auto 68.3 % (45.5-73.1); Platelet Count Result 239 k/mm3 (150-375); Red Blood Count 3.72 M/mm3 (4.2-5.4); Red Cell Distribution Width 13.7 % (11.5-14.5); White Blood Count 9.6 K/mm3 (4.5-10.0)
[2022-04-23 04:59] LABS: Alanine Aminotransferase 13 U/L (6-35); Albumin Level 3.7 g/dL (3.5-5.1); Alkaline Phosphatase 107 U/L (38-126); Anion Gap 16 mmol/L (8-16); Aspartate Amino Transferase 20 U/L (14-36); Bilirubin,Total 0.7 mg/dL (0.2-1.3); Blood Urea Nitrogen 4 mg/dL (7-17); Calcium 8.1 mg/dL (8.4-10.2); Carbon Dioxide 12 mmol/L (22-30); Chloride 107 mmol/L (98-107); Estimated CRCL calculation 155 ml/min; Estimated Glomerular Filt Rate > 60; Glucose 263 mg/dL (65-110); Lactate Dehydrogenase 143 U/L (120-246); Magnesium 1.6 mg/dL (1.6-2.3); Potassium 3.5 mmol/L (3.4-5.0); Sodium 135 mmol/L (137-145)
[2022-04-23 08:45] LABS: Glucose Point of Care 244 mg/dl (65-105)
[2022-04-23] MEDS: MONTELUKAST SODIUM 10 MG TABLET PO (08:59)
[2022-04-23] MEDS: INSULIN ASPART (*BKC) 100 UNITS/ML SUB-Q (08:59)
[2022-04-23] MEDS: OSELTAMIVIR PHOSPHATE 75 MG CAPSULE PO (09:00)
--- NOTE | 2022-04-23 09:46 | PM.DS ---
DS: Admitting Diagnosis Discharge Date 04/23/22 Admitting Diagnosis dka DS: Summary Hospital Course Hospital Course: This is a 22-year-old female patient with a history of diabetes type 1 insulin-dependent.? The patient stated that her blood sugars have been under control recently until the last 3 days.? The patient reported that over the last 3 days she has had some nasal congestion runny nose cough and sore throat.? Everybody in the household has been sick.? The patient has had multiple episodes of DKA in the past.? It has been awhile since she has had DKA.? She denies any fever chills.? The patient stated the 1st couple days she had a fever and kept down with Tylenol.? ? Her white count 11.5.? Her pH was 7.266 and came up to 7.303.? CO2 was 20.5 and then 21.1.? Her sodium is 135.? Initially her blood sugars 425 and is now 196.? The patient had gotten 4 L of fluid and IV Tylenol in the emergency room as well as Tamiflu.? Her beta hydroxybutyrate acid taste was 4.10.? Initially her anion gap was 22 and came down to 13 after the IV fluids.? The patient stated that she did take her insulin approximately 1-2 hours prior to coming to the emergency room.? Chest x-ray was read as normal chest radiograph.? Head CT was read as normal head CT.? Patient had gap is closed. Her sugars are in the 200-300s. Her A1cs greater than 11. Patient is clinically stable and is being discharged home. Patient was advised to follow-up with her [employer] for her uncontrolled diabetes. Time Spent with Patient Time attestation: Total time spent providing and/or coordinating discharge services: Exam Const: General: cooperative, healthy appearing, comfortable, no acute distress, well developed, alert, awake, Physically active, average body habitus and well nourished Nutritional Appearance: average body habitus and well nourished Orientation/consciousness: oriented to person, oriented to place, oriented to time and patient oriented x3 Limitations: no limitations HENMT: Head: normal to inspection, No palpable skull fracture present, normocephalic, atraumatic and abrasion Ears: hearing grossly normal bilaterally and external ears normal Face/Nose/Sinus: Normal external nose present and Normal nares present Eyes: General: appearance normal, both eyes and all related structures Alignment and Position: alignment normal Periorbital: periorbital findings normal Eyelids: eyelids normal Sclera: sclerae normal Pupils: Equal, round and reactive pupils present EOM: EOMs intact bilaterally Neck: Neck: normal visual inspection, full ROM, no lymphadenopathy, trachea midline and supple Chest: Chest palpation & inspection: normal inspection of the chest Resp: Effort & Inspection: normal respiratory effort Auscultation: clear to auscultation bilaterally Cardio: Palpation: normal PMI Rate: regular rate Rhythm: regular rhythm Heart sounds: S1 normal heart sound present and S2 normal heart sound present Peripheral pulses: Peripheral pulses 2+ throughout GI: Inspection: normal to inspection Auscultation: normal bowel sounds Rectal Exam: deferred Back/Spine/Pelvis: Cervical Spine: cervical ROM normal Skin: General skin exam: normal color Lesions: no lesions Rashes: no rashes Trauma: no lacerations or abrasions Wounds: no wounds Hair: normal Nails: normal Neuro: General: oriented to person, oriented to place, oriented to time and patient oriented x3 Cranial nerves: Yes Equal, round and reactive pupils present and Yes Normal hearing present Cognition (Neuro): normal cognition Speech: normal speech Gait exam (Neuro): Normal gait present Motor exam (neuro): 5/5 motor strength present throughout Sensory Exam: normal sensation Extrem: General: normal to inspection Right upper extremity: normal to inspection and shoulder/upper arm Left upper extremity: normal to inspection and shoulder/upper arm Right lower extremity: normal to inspection Left lower extremity: normal
[2022-04-23 12:15] LABS: Glucose Point of Care 308 mg/dl (65-105)
== END 2022-04-23 13:09 | disposition home or self-care (01) ==
LOC: ANHED 16:23 → ANH2MED 16:53
PROVIDERS: Nurse Practitioner; Physician Assistant; Admitting Provider Chiropractor; Emergency Provider Emergency Medicine; PCP Nurse Practitioner Family; Visit Provider Hospitalist
DX: E10.10 Type 1 diabetes mellitus with ketoacidosis without coma (principal); J11.1 Influenza due to unidentified influenza virus with other respiratory manifestations; Z20.822 Contact with and (suspected) exposure to COVID-19; F41.9 Anxiety disorder, unspecified; F32.A Depression, unspecified; F17.210 Nicotine dependence, cigarettes, uncomplicated; F17.290 Nicotine dependence, other tobacco product, uncomplicated; F10.90 Alcohol use, unspecified, uncomplicated; F12.90 Cannabis use, unspecified, uncomplicated; Z79.3 Long term (current) use of hormonal contraceptives; Z79.4 Long term (current) use of insulin; Z79.899 Other long term (current) drug therapy; Z82.49 Family history of ischemic heart disease and other diseases of the circulatory system; Z83.3 Family history of diabetes mellitus
CPT/HCPCS: 36415; 36600; 80048; 80053; 81001; 81025; 82010; 82375; 82805; 82948; 83036; 83050; 83615; 83735; 84100; 84443; 85025; 87637; 96360; 96361; 99285; A9270; G0378; G0379; J1815; J7030

== ENCOUNTER 2023-04-09 17:25 | Emergency (ER) | payer OTHER, SELFPAY ==
[2023-04-09 17:46] VITALS: BP 126/75; PULSE 88; RESP 18; TEMP 36.6; O2SAT 100
--- NOTE | 2023-04-09 18:28 | ED.NAVMDI ---
HPI - Nausea/Vomiting/Diarrhea General Chief complaint: Nausea/Vomiting/Diarrhea Stated complaint: vomiting Time Seen by Provider: 04/09/23 18:17 Source: patient and RN notes reviewed Mode of arrival: ambulatory Limitations: no limitations History of Present Illness HPI Narrative: Patient presents today complaining of vomiting. She had several vomiting episodes over the last 2 days. She has not vomited since yesterday, but does report some mild nausea. Denies diarrhea, fever, abdominal pain. States she has been able to drink fluids today without difficulty. History of type 1 diabetes in states her blood sugars had been running high, but are back down to the high 100s/low 200s, and are continuing to lower. She presents today requesting a note that she can return to work after being ill. Related Data Allergies Allergy/AdvReac Type Severity Reaction Status Date / Time No Known Allergies Allergy Mild Verified 04/09/23 17:53 Review of Systems Review of Systems: CONSTITUTIONAL: Denies body aches, fever, chills, or sweats. EYES: Denies visual changes, redness, or discharge. ENT: Denies rhinorrhea, congestion, sore throat, or otalgia. CARDIOVASCULAR: Denies chest pain, palpitations, or edema. RESPIRATORY: Denies cough or dyspnea. GASTROINTESTINAL: Denies abdominal pain, or diarrhea.+ nausea, vomiting GENITOURINARY: Denies dysuria or hematuria. SKIN: Denies rash, itching, or wounds. MUSCULOSKELETAL: Denies back pain, joint pain, or myalgia. NEUROLOGIC: Denies headache, numbness, tingling, or weakness. PSYCH: Denies depression or anxiety. 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 She works at [employer]. She continues to vein Vape. Her mother is her power family law attorney. She is a lifelong nonsmoker. She does use marijuana. She socially drinks alcohol. Code status full code. Smoking status: Current every day smoker Tobacco type: e-cigarettes/vaping Alcohol intake: current Alcohol use details: socially Substance use: current Substance use type: marijuana Lack of Transportation: No Lack of Food: Never True Current Housing: I Have Housing Concerned About Future Housing: No Difficulty Paying Gas/Electric Bills: No Difficulty Paying for Meds: No Currently Unemployed: No Education: Don't Know Difficulty w/ Childcare or Family Care: No Gender identity (if verbalized by the patient): Female Spiritual care concerns: No Comments At time of signature, I have reviewed and agree with nursing past medical, surgical, social and family history unless otherwise noted. Please see nursing chart for further information. There is no relevant family history pertinent to the presenting complaint Exam Narrative: GENERAL: Well-appearing, well-nourished, and in no acute distress. HEAD: Normocephalic, atraumatic. EYES: EOMI. No redness or drainage. Conjunctivae normal. ENT: Mucous m
== END 2023-04-09 18:33 | disposition home or self-care (01) ==
PROVIDERS: Emergency Provider Nurse Practitioner; PCP Family Medicine
DX: R11.2 Nausea with vomiting, unspecified (principal); F17.290 Nicotine dependence, other tobacco product, uncomplicated; F12.90 Cannabis use, unspecified, uncomplicated; E10.9 Type 1 diabetes mellitus without complications
CPT/HCPCS: 99211; G0463

== ENCOUNTER 2023-05-04 10:34 | Emergency (ER) | payer OTHER, SELFPAY ==
[2023-05-04 10:41] VITALS: BP 130/81; PULSE 102; RESP 16; TEMP 36.2; O2SAT 99
--- NOTE | 2023-05-04 11:28 | ED.GENADULT ---
HPI - General Adult General Chief complaint: Skin/Abscess/Foreign Body Stated complaint: Lt Side Swelling and Irritation Source: patient, RN notes reviewed and old records reviewed Mode of arrival: ambulatory Limitations: no limitations History of Present Illness HPI narrative: 23-year-old female presents to [facility] with complaints red swollen area to right upper buttocks. Patient states noted small pimple like area yesterday. Patient states had insulin pump in that area but removed 2 days ago. Patient denies nausea vomiting, fever, myalgia, any other complaints at this time Related Data Home Medications Medication Instructions Recorded Confirmed norgestimate-ethinyl estradiol 1 tablet PO DAILY 05/04/23 05/04/23 0.18 mg/0.215mg/0.25mg-35 mcg(28)tablet (Tri-Sprintec (28)) Allergies Allergy/AdvReac Type Severity Reaction Status Date / Time No Known Allergies Allergy Mild Verified 05/04/23 10:53 Review of Systems Constitutional: Constitutional: Reports no additional constitutional complaints Eyes: Eyes: Reports no additional eye complaints ENT: Reports system reviewed and no additional complaints, except as documented Cardiovascular: Cardiovascular: Reports no additional cardiovascular complaints Respiratory: Respiratory: Reports no additional respiratory complaints Integumentary/Breasts: Skin/Breast: Reports change in pigmentation and Reports wounds Neurologic: Reports system reviewed and no additional complaints, except as documented PMFSH Past Medical History Medical History Anxiety BMI 28.0-28.9,adult Cannabis use disorder, mild, abuse Depression Dietary counseling and surveillance DKA (diabetic ketoacidoses) DKA (diabetic ketoacidosis) Dog bite Encounter to establish care Hypokalemia Ingrown toenail of both feet Insomnia Leukocytosis care home (current) use of insulin Nicotine abuse Seborrheic dermatitis of scalp Thrombocytosis Type 1 diabetes mellitus Wheezing Surgical History Surgical History No pertinent past surgical history Family History Family History Father Diabetes mellitus Depression Hypertension Mother Hypertension Grandparent Hypertension Thyroid disease Renal cell carcinoma Grandparent Hypertension Depression Social History Social History Social History: Her significant other lives with her. She works at [employer]. She continues to vein Vape. Her mother is her power civil rights attorney. She is a lifelong nonsmoker. She does use marijuana. She socially drinks alcohol. Code status full code. Smoking status: Current every day smoker Tobacco type: e-cigarettes/vaping Alcohol intake: current Alcohol use details: socially Substance use: current Substance use type: marijuana Lack of Transportation: No Lack of Food: Never True Current Housing: I Have Housing Concerned About Future Housing: No Difficulty Paying Gas/Electric Bills: No Difficulty Paying for Meds: No Currently Unemployed: No Education: Don't Know Difficulty w/ Childcare or Family Care: No Gender identity (if verbalized by the patient): Female Spiritual care concerns: No Comments At the time of my signature, I reviewed and agree with the nursing past medical, surgical, social, and family history. There is no relevant family history pertinent to the patient complaint. Exam Const: General: cooperative, healthy appearing, no acute distress and well nourished Nutritional Appearance: well nourished Orientation/consciousness: patient oriented x3 Limitations: no limitations HENMT: Head: normal to inspection and normocephalic Ears: external ears normal, TM's normal bilaterally, mastoids normal and Abnormal EAC present Fa
== END 2023-05-04 11:34 | disposition home or self-care (01) ==
PROVIDERS: Emergency Provider Registered Nurse; PCP Family Medicine
DX: L02.31 Cutaneous abscess of buttock (principal); F17.290 Nicotine dependence, other tobacco product, uncomplicated; F12.90 Cannabis use, unspecified, uncomplicated; E10.9 Type 1 diabetes mellitus without complications
CPT/HCPCS: 99213; G0463

== ENCOUNTER 2023-05-06 14:37 | Emergency (ER) | payer OTHER, SELFPAY ==
[2023-05-06 15:03] VITALS: BP 148/98; PULSE 110; RESP 20; TEMP 36.5; O2SAT 98
[2023-05-06 19:50] VITALS: BP 148/90; PULSE 100; RESP 18; O2SAT 100
--- NOTE | 2023-05-06 21:59 | ED.SKABFB ---
HPI - Skin/Abscess/Foreign Bdy General Chief complaint: Skin/Abscess/Foreign Body Stated complaint: skin infection Time Seen by Provider: 05/06/23 19:55 Source: patient and family (mother) Limitations: no limitations History of Present Illness HPI narrative: This is a 23 yo who presents with concern for an abscess/skin infection on her posterior left upper hip. She had her omnipod insulin pump device placed there. She initially presented to express care for this on Sunday and started Septra/Bactrim DS 800 yesterday however she feels it is getting worse. No fevers. It has had some pus as discharge. She admits to using tweezers given concern for a retained piece of her Omnipod. SHe has also been applying hand warmers as warm compresses. Her omnipod and contingous glucose monitor are now on her bilateral arms. Related Data Home Medications Medication Instructions Recorded Confirmed norgestimate-ethinyl estradiol 1 tablet PO DAILY 05/04/23 05/04/23 0.18 mg/0.215mg/0.25mg-35 mcg(28)tablet (Tri-Sprintec (28)) Allergies Allergy/AdvReac Type Severity Reaction Status Date / Time No Known Allergies Allergy Mild Verified 05/06/23 14:38 [facility] Past Medical History Medical History Anxiety BMI 28.0-28.9,adult Cannabis use disorder, mild, abuse Depression Dietary counseling and surveillance DKA (diabetic ketoacidoses) DKA (diabetic ketoacidosis) Dog bite Encounter to establish care Hypokalemia Ingrown toenail of both feet 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 She works at [employer]. She continues to vein Vape. Her mother is her power summer intern. She is a lifelong nonsmoker. She does use marijuana. She socially drinks alcohol. Code status full code. Smoking status: Current every day smoker Tobacco type: e-cigarettes/vaping Alcohol intake: current Alcohol use details: socially Substance use: current Substance use type: marijuana Lack of Transportation: No Lack of Food: Never True Current Housing: I Have Housing Concerned About Future Housing: No Difficulty Paying Gas/Electric Bills: No Difficulty Paying for Meds: No Currently Unemployed: No Education: Don't Know Difficulty w/ Childcare or Family Care: No Gender identity (if verbalized by the patient): Female Spiritual care concerns: No Exam Narrative: GENERAL: Well-appearing, well-nourished, and in no acute distress. HEAD: Normocephalic, atraumatic. EYES: Non injected, non icteric. ENT: Nares clear, no rhinorrhea or epistaxis. NECK: Supple. CHEST: Speaking in full sentences. No respiratory distress. HEART: Initially tachycardic rate and rhythm. ABDOMEN: Soft, nondistended. EXTREMITIES: Normal range of motion. No edema. SKIN: Warm, dry. Erythematous lesion without discrete borders across left posterior upper hip/lower flank with central punctate white lesion. Overlying bandage has scant purulent discharge. NEURO: No focal deficits. Alert and oriented x3. PSYCH: Normal mood and affect. Course Vital Signs Vital signs: Vital Signs Temperature 97.7 F 05/06/23 15:03 Pulse Rate 110 H 05/06/23 15:03 Respiratory Rate 20 05/06/23 15:03 Blood Pressure 148/98 H 05/06/23 15:03 Pulse
[2023-05-06] MEDS: ACETAMINOPHEN 325 MG TABLET 650 MG PO (22:03)
[2023-05-06] MEDS: HYDROcodone/acetaminophen (*CRX) 5-325 MG TABLET 1 TAB PO (22:03)
== END 2023-05-06 22:50 | disposition home or self-care (01) ==
PROVIDERS: Emergency Provider Student in an Organized Health Care Education/Training Program; PCP Family Medicine
DX: L08.9 Local infection of the skin and subcutaneous tissue, unspecified (principal); E10.9 Type 1 diabetes mellitus without complications; F41.9 Anxiety disorder, unspecified; F17.290 Nicotine dependence, other tobacco product, uncomplicated; Z79.4 Long term (current) use of insulin
CPT/HCPCS: 99283; A9270

== ENCOUNTER 2023-05-14 12:59 | Inpatient (IN) | payer OTHER, SELFPAY ==
[2023-05-14 13:03] VITALS: BP 138/84; PULSE 106; RESP 18; TEMP 36.9; O2SAT 100
--- NOTE | 2023-05-14 13:05 | ED.SKABFB ---
HPI - Skin/Abscess/Foreign Bdy General Chief complaint: Skin/Abscess/Foreign Body Stated complaint: infected pump site Time Seen by Provider: 05/14/23 13:05 History of Present Illness HPI narrative: Patient is a 23-year-old type 1 diabetic here with concern for skin infection. She states that she 1st started noticing a small pimple on her left buttock were she typically inserts her insulin pump almost 2 weeks ago. She notes that she presented to an urgent care initially, was started on Bactrim, then presented here and was started on Keflex in addition to this Bactrim. She notes she completed this but continued to have symptoms, went to an outside emergency department few days ago where she was provided with a dose of IV antibiotics and started on 2 more oral antibiotics. Today she is our primary care doctor who evaluated her wound and recommended she come to the emergency department for likely admission for IV antibiotics. She notes her sugars have been fairly well-maintained running in the high 100s over the course of this infection. She does note some hot flashes but denies any overt fever or chills. She denies any urinary symptoms, cough, congestion, sick contacts. No prior history of recurrent abscesses or skin infections. No prior known history of MRSA. Related Data Home Medications Medication Instructions Recorded Confirmed norgestimate-ethinyl estradiol 1 tablet PO DAILY 05/04/23 05/14/23 0.18 mg/0.215mg/0.25mg-35 mcg(28)tablet (Tri-Sprintec (28)) doxycycline hyclate 100 mg tablet 100 mg PO DAILY 05/14/23 05/14/23 Allergies Allergy/AdvReac Type Severity Reaction Status Date / Time No Known Allergies Allergy Mild Verified 05/14/23 13:10 Review of Systems Review of Systems: All systems reviewed & are unremarkable except as noted in HPI and below PMFSH Past Medical History Medical History Anxiety BMI 28.0-28.9,adult Cannabis use disorder, mild, abuse Depression Dietary counseling and surveillance DKA (diabetic ketoacidoses) DKA (diabetic ketoacidosis) Dog bite Encounter to establish care Hypokalemia Ingrown toenail of both feet Insomnia Leukocytosis correction (current) use of insulin Nicotine abuse Seborrheic dermatitis of scalp Thrombocytosis Type 1 diabetes mellitus Wheezing Surgical History Surgical History No pertinent past surgical history Family History Family History Father Diabetes mellitus Depression Hypertension Mother Hypertension Grandparent Hypertension Thyroid disease Renal cell carcinoma Grandparent Hypertension Depression Social History Social History Social History: Her significant other lives with her. She works at [employer]. She continues to vein Vape. Her mother is her power human resources benefits coordinator. She is a lifelong nonsmoker. She does use marijuana. She socially drinks alcohol. Code status full code. Smoking status: Current every day smoker Tobacco type: e-cigarettes/vaping Alcohol intake: current Alcohol use details: socially Substance use: current Substance use type: marijuana Lack of Transportation: No Lack of Food: Never True Current Housing: I Have Housing Concerned About Future Housing: No Difficulty Paying Gas/Electric Bills: No Difficulty Paying for Meds: No Currently Unemployed: No Education: Don't Know Difficulty w/ Childcare or Family Care: No Gender identity (if verbalized by the patient): Female Spiritual care concerns: No Exam Narrative: GENERAL: Well-appearing, well-nourished, and in no acute distress. HEAD: Normocephalic, atraumatic. EYES: PERRLA and EOMI. ENT: Nares clear. Mucous membranes moist. NECK: Supple. CHEST: Clear to auscultation. No respiratory distress. H
[2023-05-14 13:12] VITALS: BP 138/84; PULSE 100; RESP 18; TEMP 36.9; O2SAT 100
[2023-05-14 13:52] LABS: Fractional Inspired Oxygen 21 %; HCO3 VBG 26.4 mEq/l (24.0-30.0)
[2023-05-14 13:54] LABS: PO2 VBG < 27.0 mmHg (35.0-45.0)
[2023-05-14 13:58] LABS: Basophils Absolute Auto 0.1 K/mm3 (0.0-0.1); Basophils Percent Auto 0.8 % (0.2-1.2); Eosinophils Absolute Auto 0.2 K/mm3 (0-0.3); Eosinophils Percent Auto 1.7 % (0-4.4); Hematocrit 38.1 % (37.0-47.0); Hemoglobin 12.7 g/dL (12.0-15.0); Immature Granulocyte Absolute 0.03 K/mm3 (0.00-0.031); Immature Granulocyte Percent A 0.3 % (0-0.5); Lymphocytes Absolute Auto 1.61 K/mm3 (0.9-3.2); Lymphocytes Percent Auto 17.4 % (18.3-44.2); Mean Corpuscular HGB Conc 33.3 g/dl (32-36); Mean Corpuscular Hemoglobin 29.1 pg (26-34); Mean Corpuscular Volume 87.4 fl (80-100); Mean Platelet Volume 8.9 fl (7.4-10.4); Monocytes Absolute Auto 0.4 K/mm3 (0.1-0.6); Monocytes Percent Auto 4.2 % (2.6-8.5); Neutrophils Percent Auto 75.6 % (45.5-73.1); Platelet Count Result 437 k/mm3 (150-375); Red Blood Count 4.36 M/mm3 (4.2-5.4); Red Cell Distribution Width 12.9 % (11.5-14.5); White Blood Count 9.3 K/mm3 (4.5-10.0)
[2023-05-14 14:16] LABS: Alanine Aminotransferase 33 U/L (6-35); Albumin Level 4.3 g/dL (3.5-5.1); Alkaline Phosphatase 201 U/L (38-126); Anion Gap 9 mmol/L (8-16); Aspartate Amino Transferase 42 U/L (14-36); Bilirubin,Total 0.4 mg/dL (0.2-1.3); Blood Urea Nitrogen 17 mg/dL (7-17); CRP 1.3 mg/dL (<1.0); Calcium 9.7 mg/dL (8.4-10.2); Carbon Dioxide 26 mmol/L (22-30); Chloride 98 mmol/L (98-107); Estimated CRCL calculation 117 ml/min; Estimated Glomerular Filt Rate > 60; Glucose 414 mg/dL (65-110); Potassium 4.4 mmol/L (3.4-5.0); Sodium 133 mmol/L (137-145)
[2023-05-14 14:17] LABS: Beta-Hydroxybutyrate/Acetoacetate 0.59 mmol/L (0.02-0.27)
[2023-05-14] MEDS: LACTATED RINGERS 1,000 ML 999 ML IV CONT (14:19)
[2023-05-14 14:32] LABS: Glucose Point of Care 359 mg/dl (65-105)
[2023-05-14] MEDS: VANCOMYCIN 1,500 MG/NS 500 ML 1,500 MG/500 ML BAG 250 MG IVPB (16:07)
[2023-05-14 16:25] VITALS: BP 124/87; PULSE 96; RESP 19; O2SAT 99
[2023-05-14 16:55] VITALS: BP 132/81; PULSE 94; RESP 16; TEMP 36.7; O2SAT 98
--- NOTE | 2023-05-14 16:56 | ADMGEN ---
This patient, Rama Fuchs, was admitted to Medical Room 346-01. Patient/family oriented to hospital policies and general routines including ID bracelet, bed and alarms, visiting hours, pain management, procedures, bathroom and other care routines, personal items, smoking policy, room service/diet, and visiting hours. Information on how to activate the Rapid Response Team has been discussed. Patient/Family are encouraged to report perceived risks to care and to ask questions if they do not understand what they are told or what they should do.
[2023-05-14 17:16] LABS: Glucose Point of Care 270 mg/dl (65-105)
[2023-05-14 18:04] LABS: Glucose Point of Care 282 mg/dl (65-105)
--- NOTE | 2023-05-14 18:58 | PM.IMHP ---
H&P: HPI History of Present Illness Date/Time: 05/14/23 19:30 Chief Complaint: Infected insulin pump site. Narrative: This is a 23-year-old female with type 1 diabetes mellitus who presented to the emergency department via private vehicle for evaluation of an infected insulin pump site. The patient provides the following history. A couple of weeks ago she noticed what she thought was a small pimple on the left, upper outer hip at the site where she frequently inserts her insulin pump. Over the course of a couple of days the area progressed in size and she was seen at an urgent care at which time she was prescribed cephalexin. Unfortunately the area has gotten worse and in fact she was seen at an outside emergency department several days ago where she was given IV antibiotics and was discharged home on Bactrim and doxycycline. She followed up with her doctor today and was referred to the ER given purulent drainage. She has had some hot flashes but denies fever and chills. No known history of MRSA. Appetite has been okay. She denies nausea and vomiting. Glucose has been running in the high 100s which is much better than what it has been recently as she reports hemoglobin A1c last month of around 11%. Due to ongoing infection, she is being admitted for IV antibiotics and surgery consultation for possible debridement. In the ED she received 1500 mg of vancomycin. Review of Systems Review of Systems: Twelve systems were reviewed and are negative except for as per HPI. [facility] Past Medical History Medical History (Updated 05/14/23 @ 21:06 by Gayla Ahn PA-C) Anxiety BMI 28.0-28.9,adult Cannabis use disorder, mild, abuse Depression Depression Insomnia Type 1 diabetes mellitus Surgical History Surgical History No pertinent past surgical history Family History Family History Father Diabetes mellitus Depression Hypertension Mother Hypertension Grandparent Hypertension Thyroid disease Renal cell carcinoma Grandparent Hypertension Depression Social History Social History (Updated 05/14/23 @ 21:03 by Gayla Ahn PA-C) Social History: Surrogate medical decision maker: Chen Barragan, mother. Code status: Full code. Smoking status: Former smoker Tobacco type: e-cigarettes/vaping Second hand tobacco smoke exposure: No Alcohol intake: current Drinks per week: 1 Alcohol use details: socially Substance use: current Substance use type: marijuana Lack of Transportation: No Lack of Food: Never True Current Housing: I Have Housing Concerned About Future Housing: No Difficulty Paying Gas/Electric Bills: No Difficulty Paying for Meds: No Currently Unemployed: No Education: High School Diploma/GED Difficulty w/ Childcare or Family Care: No Additional living arrangements comments: Lives with significant other. 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 Spiritual care concerns: No Meds Home Medications and Allergies Home Medications Medication Instructions Recorded Confirmed Type glucagon 3 mg/actuation nasal 3 mg intranasal ONCE PRN 07/25/22 05/14/23 Rx spray (Baqsimi) hypoglycemia #2 ea quetiapine 25 mg tablet (Seroquel) 25 mg PO QHS #30 tabs 12/11/22 05/14/23 Rx ketoconazole 2 % shampoo 1 applic topical 2XW PRN 12/12/22 05/14/23 Rx seborrheic dematitis #120 mL glucose 4 gram chewable tablet 16 g PO Q15M PRN hypoglycemia #60 04/17/23 05/14/23 Rx (Dex4 Glucose) tabs cephalexin 500 mg capsule 500 mg PO BID 05/14/23 05/14/23 History doxycycline hyclate 100 mg tablet 100 mg PO BID 05/14/23 05/14/23 History insulin lispro 100 unit/mL 120 unit continuous subcutaneous 05/14/23 05/14/23 History subcutaneous solution (Humalog infusion DAILY U-100 Insulin) sulfamethoxazole 800 1 tablet PO
[2023-05-14 21:35] VITALS: BP 130/67; PULSE 95; RESP 16; TEMP 36.1; O2SAT 98
[2023-05-14 22:05] LABS: Glucose Point of Care 252 mg/dl (65-105)
[2023-05-14] MEDS: metroNIDAZOLE 500 MG/ISO 100ML 500 MG/100 ML BAG 100 MG IVPB (22:16)
[2023-05-14] MEDS: CEFEPIME 2 GM/NS 50 ML 2 GM/50 ML BAG IVPB (22:16)
[2023-05-14] MEDS: ACETAMINOPHEN 325 MG TABLET 650 MG PO (22:17)
[2023-05-15] MEDS: VANCOMYCIN 1,500 MG/NS 500 ML 1,500 MG/500 ML BAG 250 MG IVPB ×2 (02:00→14:40)
[2023-05-15] MEDS: HYDROcodone/acetaminophen (*CRX) 5-325 MG TABLET 1 TAB PO ×2 (03:47→21:10)
[2023-05-15 03:53] VITALS: BP 123/79; PULSE 90; RESP 18; TEMP 36.6; O2SAT 99
[2023-05-15 06:09] LABS: Hematocrit 32.7 % (37.0-47.0); Hemoglobin 11.1 g/dL (12.0-15.0); Mean Corpuscular HGB Conc 33.9 g/dl (32-36); Mean Corpuscular Hemoglobin 29.6 pg (26-34); Mean Corpuscular Volume 87.2 fl (80-100); Mean Platelet Volume 8.7 fl (7.4-10.4); Platelet Count Result 400 k/mm3 (150-375); Red Blood Count 3.75 M/mm3 (4.2-5.4); Red Cell Distribution Width 12.7 % (11.5-14.5); White Blood Count 9.8 K/mm3 (4.5-10.0)
[2023-05-15] MEDS: metroNIDAZOLE 500 MG/ISO 100ML 500 MG/100 ML BAG 100 MG IVPB ×2 (06:27→13:09)
[2023-05-15 07:02] LABS: Anion Gap 6 mmol/L (8-16); Blood Urea Nitrogen 15 mg/dL (7-17); Calcium 8.8 mg/dL (8.4-10.2); Carbon Dioxide 25 mmol/L (22-30); Chloride 103 mmol/L (98-107); Estimated CRCL calculation 193 ml/min; Estimated Glomerular Filt Rate > 60; Glucose 260 mg/dL (65-110); Potassium 3.9 mmol/L (3.4-5.0); Sodium 134 mmol/L (137-145)
[2023-05-15 08:42] LABS: Glucose Point of Care 226 mg/dl (65-105)
[2023-05-15] MEDS: ACETAMINOPHEN 325 MG TABLET 650 MG PO ×2 (08:56→14:56)
[2023-05-15] MEDS: CEFEPIME 2 GM/NS 50 ML 2 GM/50 ML BAG IVPB (08:57)
--- NOTE | 2023-05-15 10:30 | PM.IMPN ---
Progress Note: A&P Assessment and Plan (1) Cellulitis and abscess of buttock: Code(s): L02.31 - Cutaneous abscess of buttock; L03.317 - Cellulitis of buttock Status: Acute Assessment and Plan: Going to the operating room tomorrow for debridement, vanc and cefepime ongoing (2) Type 1 diabetes mellitus with hyperglycemia: Code(s): E10.65 - Type 1 diabetes mellitus with hyperglycemia Status: Acute Assessment and Plan: using insulin pump (3) Depression: Code(s): F32.A - Depression, unspecified Status: Acute Assessment and Plan: continue Seroquel, no plans to harm self or others Time Spent With Patient Time with patient: 25 - 35 minutes Subjective Date/time seen: 05/15/23 10:30 Interval history: H&P 05/14: This is a 23-year-old female with type 1 diabetes mellitus who presented to the emergency department via private vehicle for evaluation of an infected insulin pump site. The patient provides the following history. A couple of weeks ago she noticed what she thought was a small pimple on the left, upper outer hip at the site where she frequently inserts her insulin pump. Over the course of a couple of days the area progressed in size and she was seen at an urgent care at which time she was prescribed cephalexin. Unfortunately the area has gotten worse and in fact she was seen at an outside emergency department several days ago where she was given IV antibiotics and was discharged home on Bactrim and doxycycline. She followed up with her doctor today and was referred to the ER given purulent drainage. She has had some hot flashes but denies fever and chills. No known history of MRSA. Appetite has been okay. She denies nausea and vomiting. Glucose has been running in the high 100s which is much better than what it has been recently as she reports hemoglobin A1c last month of around 11%. Due to ongoing infection, she is being admitted for IV antibiotics and surgery consultation for possible debridement. In the ED she received 1500 mg of vancomycin. Surgery Consult 05/15: The patient is a 23-year-old female presenting to the emergency department secondary to worsening left hip wound.? The patient reports she 1st noticed the area approximately 2 weeks ago and it started out as a small pimple.? Over the 2 weeks, the area has become very inflamed and occasionally drains purulent material.? The patient has been placed on multiple rounds of outpatient antibiotics without improvement.? Of note, the patient reports this is where she frequently places her insulin pump.? The patient is a poorly controlled diabetic and her last A1c was 11. 05/15: Patient self manages with insulin pump and Dexcom, glucose remains elevated today. Surgery saw patient and plans to go to OR tomorrow for wound debridement. Continue IV antibiotics for now. She takes Seroquel at home, sleeps during the day and is up late into the night/morning usually. Review of Systems Review of Systems: All systems reviewed & are unremarkable except as noted in HPI and below Exam Narrative: General: Well-developed, nontoxic-appearing female sitting up in bed. Weight: 90.1 kg. BMI: 34.1. HEENT: PERRL, EOMI. Sclera anicteric. Oral mucosa moist. Neck: Supple. Respiratory: Lungs are clear to auscultation bilaterally. Cardiovascular: Regular rate and rhythm with S1-S2. Gastrointestinal: Abdomen is soft, nontender, and nondistended with positive bowel sounds. Skin: Warm and dry. Approximately 3 cm indurated area on the left, upper outer buttock with surrounding erythema. There is a small open draining sinus with purulent discharge. No crepitus noted. The area is warm and tender to touch. Extremities: No cyanosis, clubbing, or edema. Radial and pedal pulses intact. Neurological: Alert. Cranial nerves 2-12 are grossly intact. No gross fo
[2023-05-15 12:23] LABS: Glucose Point of Care 303 mg/dl (65-105)
[2023-05-15 14:00] VITALS: BP 124/85; PULSE 104; RESP 18; TEMP 36.6; O2SAT 99
--- NOTE | 2023-05-15 14:16 | PM.CNGS ---
Assessment and Plan Assessment and plan (1) Cellulitis and abscess of buttock: Code(s): L02.31 - Cutaneous abscess of buttock; L03.317 - Cellulitis of buttock Status: Acute Assessment and Plan: long discussion with patient regarding need for debridement, patient prefers to be sedated in the operating room for procedure, continue local wound care and antibiotics for now, plan for procedure in operating room tomorrow (2) Type 1 diabetes mellitus with hyperglycemia: Code(s): E10.65 - Type 1 diabetes mellitus with hyperglycemia Status: Acute Assessment and Plan: needs better control, patient in agreement and understanding, management per primary team History of Present Illness Consult details Consult date: 05/15/23 Reason for consult: wound care Requesting physician: Dolly Ellsworth MD Narrative: The patient is a 23-year-old female presenting to the emergency department secondary to worsening left hip wound. The patient reports she 1st noticed the area approximately 2 weeks ago and it started out as a small pimple. Over the 2 weeks, the area has become very inflamed and occasionally drains purulent material. The patient has been placed on multiple rounds of outpatient antibiotics without improvement. Of note, the patient reports this is where she frequently places her insulin pump. The patient is a poorly controlled diabetic and her last A1c was 11. Review of Systems Review of Systems: All systems reviewed & are unremarkable except as noted in HPI and below PMFSH Past Medical History Medical History Anxiety BMI 28.0-28.9,adult Cannabis use disorder, mild, abuse Depression Depression Insomnia Type 1 diabetes mellitus Surgical History Surgical History No pertinent past surgical history Family History Family History Father Diabetes mellitus Depression Hypertension Mother Hypertension Grandparent Hypertension Thyroid disease Renal cell carcinoma Grandparent Hypertension Depression Social History Social History Social History: Surrogate medical decision maker: Chen Barragan, mother. Code status: Full code. Smoking status: Former smoker Tobacco type: e-cigarettes/vaping Second hand tobacco smoke exposure: No Alcohol intake: current Drinks per week: 1 Alcohol use details: socially Substance use: current Substance use type: marijuana Lack of Transportation: No Lack of Food: Never True Current Housing: I Have Housing Concerned About Future Housing: No Difficulty Paying Gas/Electric Bills: No Difficulty Paying for Meds: No Currently Unemployed: No Education: High School Diploma/GED Difficulty w/ Childcare or Family Care: No Additional living arrangements comments: Lives with significant other. 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 Spiritual care concerns: No Meds Home Medications and Allergies Home Medications Medication Instructions Recorded Confirmed Type glucagon 3 mg/actuation nasal 3 mg intranasal ONCE PRN 07/25/22 05/14/23 Rx spray (Baqsimi) hypoglycemia #2 ea quetiapine 25 mg tablet (Seroquel) 25 mg PO QHS #30 tabs 12/11/22 05/14/23 Rx ketoconazole 2 % shampoo 1 applic topical 2XW PRN 12/12/22 05/14/23 Rx seborrheic dematitis #120 mL glucose 4 gram chewable tablet 16 g PO Q15M PRN hypoglycemia #60 04/17/23 05/14/23 Rx (Dex4 Glucose) tabs cephalexin 500 mg capsule 500 mg PO BID 05/14/23 05/14/23 History doxycycline hyclate 100 mg tablet 100 mg PO BID 05/14/23 05/14/23 History insulin lispro 100 unit/mL 120 unit continuous subcutaneous 05/14/23 05/14/23 History subcutaneous solution (Humalog infusion DAILY U-100 Insulin) sulfamethoxaz
[2023-05-15 16:49] LABS: Glucose Point of Care 294 mg/dl (65-105)
[2023-05-15 20:33] LABS: Glucose Point of Care 333 mg/dl (65-105)
[2023-05-15 20:46] VITALS: BP 123/76; PULSE 77; RESP 20; TEMP 36.5; O2SAT 99
[2023-05-15] MEDS: QUEtiapine FUMARATE 25 MG TABLET PO (21:10)
[2023-05-15] MEDS: cefTRIAXone 2 GM/NS 100 ML 2 GM/100 ML BAG IVPB (22:21)
[2023-05-16] VITALS (7 sets, daily range): BP systolic 112–140; BP diastolic 68–84; PULSE 80–105; RESP 14–20; TEMP 36.4–37.1; O2SAT 98–100
[2023-05-16 02:29] LABS: Vancomycin Trough 8.7 ug/mL (10.0-20.0)
[2023-05-16] MEDS: VANCOMYCIN 1,750 MG/NS 500 ML 1,750 MG/500 ML BAG 250 MG IVPB ×3 (03:25→18:28)
[2023-05-16 06:37] LABS: Basophils Absolute Auto 0.1 K/mm3 (0.0-0.1); Basophils Percent Auto 1.1 % (0.2-1.2); Eosinophils Absolute Auto 0.2 K/mm3 (0-0.3); Eosinophils Percent Auto 2.7 % (0-4.4); Hematocrit 33.9 % (37.0-47.0); Hemoglobin 11.4 g/dL (12.0-15.0); Immature Granulocyte Absolute 0.05 K/mm3 (0.00-0.031); Immature Granulocyte Percent A 0.6 % (0-0.5); Lymphocytes Absolute Auto 2.89 K/mm3 (0.9-3.2); Lymphocytes Percent Auto 32.7 % (18.3-44.2); Mean Corpuscular HGB Conc 33.6 g/dl (32-36); Mean Corpuscular Hemoglobin 29.5 pg (26-34); Mean Corpuscular Volume 87.6 fl (80-100); Mean Platelet Volume 8.7 fl (7.4-10.4); Monocytes Absolute Auto 0.6 K/mm3 (0.1-0.6); Neutrophils Absolute Auto 4.9 K/mm3 (1.3-6.7); Neutrophils Percent Auto 55.9 % (45.5-73.1); Platelet Count Result 418 k/mm3 (150-375); Red Blood Count 3.87 M/mm3 (4.2-5.4); Red Cell Distribution Width 13.3 % (11.5-14.5); White Blood Count 8.8 K/mm3 (4.5-10.0)
[2023-05-16 06:51] LABS: Alanine Aminotransferase 25 U/L (6-35); Albumin Level 3.6 g/dL (3.5-5.1); Alkaline Phosphatase 139 U/L (38-126); Anion Gap 6 mmol/L (8-16); Aspartate Amino Transferase 31 U/L (14-36); Bilirubin,Total 0.3 mg/dL (0.2-1.3); Blood Urea Nitrogen 11 mg/dL (7-17); Calcium 8.9 mg/dL (8.4-10.2); Carbon Dioxide 25 mmol/L (22-30); Chloride 106 mmol/L (98-107); Estimated CRCL calculation 193 ml/min; Estimated Glomerular Filt Rate > 60; Glucose 282 mg/dL (65-110); Magnesium 1.6 mg/dL (1.6-2.3); Potassium 4.1 mmol/L (3.4-5.0); Sodium 137 mmol/L (137-145)
[2023-05-16 08:22] LABS: Glucose Point of Care 280 mg/dl (65-105)
--- NOTE | 2023-05-16 11:14 | WPDHPUPDATE1 ---
History and Physical Update Update Date/Time: 05/16/23 11:14 History and Physical has been reviewed, including an updated exam of the patient. There are NO changes in the patient's condition. Risks, benefits, and alternatives have been discussed and questions answered. Patient agrees to proceed with procedure.
[2023-05-16 12:01] LABS: Glucose Point of Care 290 mg/dl (65-105)
--- NOTE | 2023-05-16 12:34 | PM.IMPN ---
Progress Note: A&P Assessment and Plan (1) Cellulitis and abscess of buttock: Code(s): L02.31 - Cutaneous abscess of buttock; L03.317 - Cellulitis of buttock Status: Acute Assessment and Plan: Went to the operating room today for debridement, vanc and cefepime ongoing (2) Type 1 diabetes mellitus with hyperglycemia: Code(s): E10.65 - Type 1 diabetes mellitus with hyperglycemia Status: Acute Assessment and Plan: using insulin pump (3) Depression: Code(s): F32.A - Depression, unspecified Status: Acute Assessment and Plan: continue Seroquel, no plans to harm self or others Plan Wound care, DC on oral antibiotics likely tomorrow, follow wound culture Time Spent With Patient Time with patient: 15 - 25 minutes Subjective Date/time seen: 05/16/23 16:34 Interval history: H&P 05/14: This is a 23-year-old female with type 1 diabetes mellitus who presented to the emergency department via private vehicle for evaluation of an infected insulin pump site. The patient provides the following history. A couple of weeks ago she noticed what she thought was a small pimple on the left, upper outer hip at the site where she frequently inserts her insulin pump. Over the course of a couple of days the area progressed in size and she was seen at an urgent care at which time she was prescribed cephalexin. Unfortunately the area has gotten worse and in fact she was seen at an outside emergency department several days ago where she was given IV antibiotics and was discharged home on Bactrim and doxycycline. She followed up with her doctor today and was referred to the ER given purulent drainage. She has had some hot flashes but denies fever and chills. No known history of MRSA. Appetite has been okay. She denies nausea and vomiting. Glucose has been running in the high 100s which is much better than what it has been recently as she reports hemoglobin A1c last month of around 11%. Due to ongoing infection, she is being admitted for IV antibiotics and surgery consultation for possible debridement. In the ED she received 1500 mg of vancomycin. Surgery Consult 05/15: The patient is a 23-year-old female presenting to the emergency department secondary to worsening left hip wound.? The patient reports she 1st noticed the area approximately 2 weeks ago and it started out as a small pimple.? Over the 2 weeks, the area has become very inflamed and occasionally drains purulent material.? The patient has been placed on multiple rounds of outpatient antibiotics without improvement.? Of note, the patient reports this is where she frequently places her insulin pump.? The patient is a poorly controlled diabetic and her last A1c was 11. 05/15: Patient self manages with insulin pump and Dexcom, glucose remains elevated today. Surgery saw patient and plans to go to OR tomorrow for wound debridement. Continue IV antibiotics for now. She takes Seroquel at home, sleeps during the day and is up late into the night/morning usually. 05/16: Patient awake, alert, oriented post operative. Wound washout and debridement completed by surgery. Wound care will be seen patient tomorrow. Continue IV antibiotics for now. Review of Systems Review of Systems: All systems reviewed & are unremarkable except as noted in HPI and below Exam Narrative: General: Well-developed, nontoxic-appearing female sitting up in bed. HEENT: PERRL, EOMI. Sclera anicteric. Oral mucosa moist. Neck: Supple. No JVD Respiratory: Lungs are clear to auscultation bilaterally. Cardiovascular: Regular rate and rhythm with S1-S2. Gastrointestinal: Abdomen is soft, nontender, and nondistended with positive bowel sounds. Skin: Warm and dry. Approximately 3 cm indurated area on the left, upper outer buttock with surrounding erythema. There is a small open draining
--- NOTE | 2023-05-16 12:44 | WPDANESEPPF ---
Anes - Initial Pre Proc Eval Procedure: Operation Date: 05/16/23 13:30 Proposed Procedures p Complex Debridement Left Hip Wound - Janice Abbasi MD Date/Time: 05/16/23 12:44 Surgeon: Behzad Lozano MD Pre Op Diagnosis: Cellulitis and Abscess of Buttock Patient Data Age: 23 Gender: F Height: 1.63 m Weight: 90.1 kg Last Vital Signs Temp 37.1 C 05/16/23 05:53 Pulse 98 05/16/23 05:53 Resp 20 05/16/23 05:53 BP 127/68 05/16/23 05:53 Pulse Ox 98 05/16/23 05:53 O2 Del Method Room Air 05/16/23 08:00 Allergies Allergy/AdvReac Type Severity Reaction Status Date / Time No Known Allergies Allergy Mild Verified 05/14/23 13:10 Home Medications Medication Instructions Recorded Confirmed Type glucagon 3 mg/actuation nasal 3 mg intranasal ONCE PRN 07/25/22 05/14/23 Rx spray (Baqsimi) hypoglycemia #2 ea quetiapine 25 mg tablet (Seroquel) 25 mg PO QHS #30 tabs 12/11/22 05/14/23 Rx ketoconazole 2 % shampoo 1 applic topical 2XW PRN 12/12/22 05/14/23 Rx seborrheic dematitis #120 mL glucose 4 gram chewable tablet 16 g PO Q15M PRN hypoglycemia #60 04/17/23 05/14/23 Rx (Dex4 Glucose) tabs cephalexin 500 mg capsule 500 mg PO BID 05/14/23 05/14/23 History doxycycline hyclate 100 mg tablet 100 mg PO BID 05/14/23 05/14/23 History insulin lispro 100 unit/mL 120 unit continuous subcutaneous 05/14/23 05/14/23 History subcutaneous solution (Humalog infusion DAILY U-100 Insulin) sulfamethoxazole 800 1 tablet PO 12 05/14/23 05/14/23 History mg-trimethoprim 160 mg tablet Laboratory Tests 05/15/23 05/15/23 05/16/23 16:47 20:28 01:40 WBC RBC Hgb Hct MCV MCH MCHC RDW Plt Count MPV Immature Gran % (Auto) Neut % (Auto) Lymph % (Auto) [place]vert % (Auto) Eos % (Auto) Baso % (Auto) Lymph # (Auto) [place]vert # (Auto) Eos # (Auto) Baso # (Auto) Abs Immat Gran (auto) Absolute Neuts (auto) Absolute Nucleated RBC Nucleated RBC % Sodium Potassium Chloride Carbon Dioxide Anion Gap BUN Creatinine Estim Creat Clear Calc Estimated GFR Glucose POC Capillary Glucose 294 H mg/dl 333 H mg/dl (65-105) (65-105) Calcium Magnesium Total Bilirubin AST ALT Alkaline Phosphatase Total Protein Albumin Vancomycin Trough 8.7 L ug/mL (10.0-20.0) 05/16/23 05/16/23 05/16/23 06:21 08:12 11:54 WBC 8.8 K/mm3 (4.5-10.0) RBC 3.87 L M/mm3 (4.2-5.4) Hgb 11.4 L g/dL (12.0-15.0) Hct 33.9 L % (37.0-47.0) MCV 87.6 fl (80-100) MCH 29.5 pg (26-34) MCHC 33.6 g/dl (32-36) RDW 13.3 % (11.5-14.5) Plt Count 418 H k/mm3 (150-375) MPV 8.7 fl (7.4-10.4) Immature Gran % (Auto) 0.6 H % (0-0.5) Neut % (Auto) 55.9 % (45.5-73.1) Lymph % (Auto) 32.7 % (18.3-44.2) Calvert % (Auto) 7.0 % (2.6-8.5) Eos % (Auto) 2.7 % (0-4.4) Baso % (Auto) 1.1 % (0.2-1.2) Lymph # (Auto) 2.89 K/mm3 (0.9-3.2) Calvert # (Auto) 0.6 K/mm3 (0.1-0.6) Eos # (Auto) 0.2 K/mm3 (0-0.3) Baso # (Auto) 0.1 K/mm3 (0.0-0.1) Abs Immat Gran (auto) 0.05 H K/mm3 (0.00-0.031) Absolute Neuts (auto) 4.9 K/mm3 (1.3-6.7) Absolute Nucleated RBC 0.0 K/mm3 (0.0-0.012) Nucleated RBC % 0.0 % (0.0-0.2) Sodium 137 mmol/L (137-145) Potassium 4.1 mmol/L (3.4-5.0) Chl
[2023-05-16] MEDS: LACTATED RINGERS 1,000 ML 30 ML IV CONT (12:45)
[2023-05-16] MEDS: BUPivacaine HCL 0.5% 10 ML AMP 20 ML INFILTRATE (13:40)
--- NOTE | 2023-05-16 13:46 | W.PM.PROC2 ---
Procedure Note - Detailed Date of Procedure 05/16/23 Pre-op Diagnosis left hip necrotic wound measuring 7 x 5 cm with necrotic area measuring 4 x 3 cm Post-op Diagnosis Same Procedure Performed complex incision and drainage left hip necrotic wound, debridement of necrotic tissue, washout Surgeon Janice Abbasi MD Anesthesia MAC and Local Indications 23-year-old female presenting with left hip necrotic wound worsening over the last 2 weeks. Patient reports this is the site of her insulin pump. Findings Necrotic left hip wound measuring 7 x 5 cm with necrotic area measuring 4 by 3 cm Description of Procedure The patient was taken the operating room and placed in the supine position. After adequate induction of MAC anesthesia, the patient was prepped and draped in the normal sterile fashion. A time-out was then done to verify the patient's identity, as well as the procedure being performed. I began by localizing area and around this wound measuring 7 x 5 cm. Once adequately anesthetized, I began debriding the necrotic area in the center of the wound that measured 4 x 3 cm. There was noted to be an extensive amount of necrosis including the dermis and underlying subcutaneous tissue. There was liquified necrosis of the subcutaneous tissue and some purulent drainage noted. Once the entire cavity was debrided to healthy bleeding tissue, this area now measured 4 x 3 x 1.5 cm. Of note, there was no tunneling of this cavity. Also the extent of the cavity was all contained within the subcutaneous tissue and there was no underlying involvement of the fascia or musculature. I then copiously washed out this cavity. Hemostasis was gained with the Bovie cautery. I then packed this cavity with a Kerlix soaked in normal saline. Sterile dressing was then placed. The patient tolerated the procedure well. She will be transferred to the recovery room in stable condition. Estimated Blood Loss 5 Drains No Packing Yes Pathology None sent Complications No immediate complications Condition Stable Disposition PACU [facility] Billing Surgery - Charge Forward: Surgery Billing
[2023-05-16 13:48] LABS: Glucose Point of Care 269 mg/dl (65-105)
[2023-05-16 17:13] LABS: Glucose Point of Care 340 mg/dl (65-105)
[2023-05-16] MEDS: ACETAMINOPHEN 325 MG TABLET 650 MG PO ×2 (17:31→23:34)
[2023-05-16] MEDS: cefTRIAXone 2 GM/NS 100 ML 2 GM/100 ML BAG IVPB (21:05)
[2023-05-16] MEDS: QUEtiapine FUMARATE 25 MG TABLET PO (21:05)
[2023-05-16 21:10] LABS: Glucose Point of Care 400 mg/dl (65-105)
[2023-05-17 02:12] LABS: Basophils Absolute Auto 0.1 K/mm3 (0.0-0.1); Basophils Percent Auto 0.7 % (0.2-1.2); Hematocrit 33.7 % (37.0-47.0); Hemoglobin 11.6 g/dL (12.0-15.0); Immature Granulocyte Absolute 0.06 K/mm3 (0.00-0.031); Immature Granulocyte Percent A 0.4 % (0-0.5); Lymphocytes Absolute Auto 1.68 K/mm3 (0.9-3.2); Lymphocytes Percent Auto 12.2 % (18.3-44.2); Mean Corpuscular HGB Conc 34.4 g/dl (32-36); Mean Corpuscular Hemoglobin 29.8 pg (26-34); Mean Corpuscular Volume 86.6 fl (80-100); Mean Platelet Volume 8.5 fl (7.4-10.4); Monocytes Absolute Auto 0.5 K/mm3 (0.1-0.6); Monocytes Percent Auto 3.4 % (2.6-8.5); Neutrophils Absolute Auto 11.4 K/mm3 (1.3-6.7); Neutrophils Percent Auto 83.3 % (45.5-73.1); Platelet Count Result 455 k/mm3 (150-375); Red Blood Count 3.89 M/mm3 (4.2-5.4); Red Cell Distribution Width 13.2 % (11.5-14.5); White Blood Count 13.7 K/mm3 (4.5-10.0)
[2023-05-17 02:24] LABS: Alanine Aminotransferase 27 U/L (6-35); Albumin Level 3.8 g/dL (3.5-5.1); Alkaline Phosphatase 119 U/L (38-126); Anion Gap 9 mmol/L (8-16); Aspartate Amino Transferase 30 U/L (14-36); Bilirubin,Total 0.3 mg/dL (0.2-1.3); Blood Urea Nitrogen 9 mg/dL (7-17); Calcium 9.2 mg/dL (8.4-10.2); Carbon Dioxide 24 mmol/L (22-30); Chloride 104 mmol/L (98-107); Estimated CRCL calculation 193 ml/min; Estimated Glomerular Filt Rate > 60; Glucose 306 mg/dL (65-110); Magnesium 1.7 mg/dL (1.6-2.3); Potassium 4.1 mmol/L (3.4-5.0); Sodium 137 mmol/L (137-145)
[2023-05-17] MEDS: VANCOMYCIN 1,750 MG/NS 500 ML 1,750 MG/500 ML BAG 250 MG IVPB ×2 (04:10→10:47)
[2023-05-17 05:31] VITALS: BP 104/58; PULSE 94; RESP 19; TEMP 36.9; O2SAT 98
[2023-05-17] MEDS: diphenhydrAMINE HCl INJ 50 MG/ML VIAL 25 MG IV PUSH (06:05)
[2023-05-17 08:00] VITALS: PULSE 87; RESP 14; O2SAT 100
--- NOTE | 2023-05-17 08:08 | P.PNAN_ITS ---
Anes - Prog Note Post-Op Date/Time: 05/17/23 08:08 Cardiovascular status: normal Respiratory status: normal Airway patency: baseline Mental status: baseline Post-Op hydration status: normal Vital Signs: Last Vital Signs Temp 36.9 C 05/17/23 05:31 Pulse 94 05/17/23 05:31 Resp 19 05/17/23 05:31 BP 104/58 L 05/17/23 05:31 Pulse Ox 98 05/17/23 05:31 O2 Del Method Room Air 05/16/23 14:20 O2 Flow Rate 8 05/16/23 13:37 Pain Score (VAS): 08/11 I/O: Intake & Output 05/16/23 05/17/23 05/17/23 23:59 07:59 15:59 Intake Total 940 Balance 940 Laboratory Tests 05/17/23 02:06 05/17/23 02:06 05/16/23 05/16/23 05/16/23 08:12 11:54 13:45 WBC RBC Hgb Hct MCV MCH MCHC RDW Plt Count MPV Immature Gran % (Auto) Neut % (Auto) Lymph % (Auto) [place] % (Auto) Eos % (Auto) Baso % (Auto) Lymph # (Auto) [place] # (Auto) Eos # (Auto) Baso # (Auto) Abs Immat Gran (auto) Absolute Neuts (auto) Absolute Nucleated RBC Nucleated RBC % Sodium Potassium Chloride Carbon Dioxide Anion Gap BUN Creatinine Estim Creat Clear Calc Estimated GFR Glucose POC Capillary Glucose 280 H 290 H 269 H Calcium Magnesium Total Bilirubin AST ALT Alkaline Phosphatase Total Protein Albumin Vancomycin Trough 05/16/23 05/16/23 05/17/23 17:06 21:01 02:06 WBC 13.7 H RBC 3.89 L Hgb 11.6 L Hct 33.7 L MCV 86.6 MCH 29.8 MCHC 34.4 RDW 13.2 Plt Count 455 H MPV 8.5 Immature Gran % (Auto) 0.4 Neut % (Auto) 83.3 H Lymph % (Auto) 12.2 L [place] % (Auto) 3.4 Eos % (Auto) 0.0 Baso % (Auto) 0.7 Lymph # (Auto) 1.68 [place] # (Auto) 0.5 Eos # (Auto) 0.0 Baso # (Auto) 0.1 Abs Immat Gran (auto) 0.06 H Absolute Neuts (auto) 11.4 H Absolute Nucleated RBC 0.0 Nucleated RBC % 0.0 Sodium 137 Potassium 4.1 Chloride 104 Carbon Dioxide 24 Anion Gap 9 BUN 9 Creatinine 0.40 L Estim Creat Clear Calc 193 Estimated GFR > 60 Glucose 306 H POC Capillary Glucose 340 H 400 H Calcium 9.2 Magnesium 1.7 Total Bilirubin 0.3 AST 30 ALT 27 Alkaline Phosphatase 119 Total Protein 7.0 Albumin 3.8 Vancomycin Trough 17.0 Post-procedural complaints: none Patient Feedback: Patient satisfied with anesthetic care.
[2023-05-17 08:56] LABS: Glucose Point of Care 201 mg/dl (65-105)
[2023-05-17 09:00] VITALS: BMI 34.0
[2023-05-17] MEDS: HYDROcodone/acetaminophen (*CRX) 5-325 MG TABLET 1 TAB PO ×2 (10:46→17:07)
[2023-05-17 12:24] LABS: Glucose Point of Care 284 mg/dl (65-105)
[2023-05-17 13:00] VITALS: BP 123/72; PULSE 87; RESP 14; TEMP 36.8; O2SAT 100
--- NOTE | 2023-05-17 13:05 | PM.DS ---
DS: Admitting Diagnosis Discharge Date 05/17/2023 Admitting Diagnosis cellulitis and abscess of buttock, type 1 diabetes mellitus with hyperglycemia, depression DS: Discharge Diagnosis Discharge Diagnosis (1) Cellulitis and abscess of buttock: Code(s): L02.31 - Cutaneous abscess of buttock; L03.317 - Cellulitis of buttock Status: Acute (2) Type 1 diabetes mellitus with hyperglycemia: Code(s): E10.65 - Type 1 diabetes mellitus with hyperglycemia Status: Acute (3) Depression: Code(s): F32.A - Depression, unspecified Status: Acute DS: Summary Hospital Course Reason for hospitalization: nonhealing infected wound abscess left buttock Hospital Course: H&P 05/14:? This is a 23-year-old female with type 1 diabetes mellitus who presented to the emergency department via private vehicle for evaluation of an infected insulin pump site. The patient provides the following history. A couple of weeks ago she noticed what she thought was a small pimple on the left, upper outer hip at the site where she frequently inserts her insulin pump. Over the course of a couple of days the area progressed in size and she was seen at an urgent care at which time she was prescribed cephalexin. Unfortunately the area has gotten worse and in fact she was seen at an outside emergency department several days ago where she was given IV antibiotics and was discharged home on Bactrim and doxycycline. She followed up with her doctor today and was referred to the ER given purulent drainage. She has had some hot flashes but denies fever and chills. No known history of MRSA. Appetite has been okay. She denies nausea and vomiting. Glucose has been running in the high 100s which is much better than what it has been recently as she reports hemoglobin A1c last month of around 11%. Due to ongoing infection, she is being admitted for IV antibiotics and surgery consultation for possible debridement. In the ED she received 1500 mg of vancomycin. Surgery Consult 05/15:? The patient is a 23-year-old female presenting to the emergency department secondary to worsening left hip wound.? The patient reports she 1st noticed the area approximately 2 weeks ago and it started out as a small pimple.? Over the 2 weeks, the area has become very inflamed and occasionally drains purulent material.? The patient has been placed on multiple rounds of outpatient antibiotics without improvement.? Of note, the patient reports this is where she frequently places her insulin pump.? The patient is a poorly controlled diabetic and her last A1c was 11. 05/15:? Patient self manages with insulin pump and Dexcom, glucose remains elevated today.? Surgery saw patient and plans to go to OR tomorrow for wound debridement.? Continue IV antibiotics for now.? She takes Seroquel at home, sleeps during the day and is up late into the night/morning usually. 05/16:? Patient awake, alert, oriented post operative.? Wound washout and debridement completed by surgery.? Wound care will be seen patient tomorrow.? Continue IV antibiotics for now. 05/17: wound care came to bedside for dressing change and evaluation. There is a 4 by 3 by 2 cm wound post surgical debridement with improving cellulitic component surrounding. No induration or fluctuance. No active drainage. Patient is afebrile. White blood cell count did elevate some but we suspect this is stress related postoperative rather than worsening of infection. Surgery has rounded on patient and feels that she is ready for discharge. Wound care has discussed daily dressing changes and are working with the surgeon to get outpatient follow-up in the [facility] for periodically dressing changes and evaluation. We will discharge patient on Bactrim and Keflex for 10 days. Status at Discharge Cognitive/behavioral status at discharge: Awake alert oriented and pl
--- NOTE | 2023-05-17 13:50 | WPDPN ---
Progress Note: A&P Assessment and Plan (1) Cellulitis and abscess of buttock: Code(s): L02.31 - Cutaneous abscess of buttock; L03.317 - Cellulitis of buttock Status: Acute Assessment and Plan: doing well, local wound care, po abx, ok to dc home c f/u in 2 wks Subjective Date/time seen: 05/17/23 13:50 Interval history: doing well, some mild soreness in L hip Review of Systems Review of Systems: All systems reviewed & are unremarkable except as noted in HPI and below Exam Const: General: cooperative, comfortable and no acute distress Resp: Auscultation: clear to auscultation bilaterally Cardio: Rate: regular rate Rhythm: regular rhythm GI: Inspection: normal to inspection Skin: Other: L hip - wound c good granulation tissue, surrounding cellulitis improved Objective Data Vital Signs Vital Signs: Vital Signs - 24 hr 05/16/23 14:05 05/16/23 14:20 05/16/23 21:31 Temperature 36.8 C Pulse Rate 83 83 105 H Respiratory Rate 14 14 20 Blood Pressure 117/75 116/72 140/74 Pulse Oximetry 99 99 100 Oxygen Delivery Room Air Room Air 05/17/23 05:31 Temperature 36.9 C Pulse Rate 94 Respiratory Rate 19 Blood Pressure 104/58 L Pulse Oximetry 98 Oxygen Delivery Intake/Output Intake/Output: Intake & Output 05/14/23 05/15/23 05/16/23 05/17/23 23:59 23:59 23:59 23:59 Intake Total 1650 2570 2240 860 Balance 1650 2570 2240 860 Meds/Results Medications: Active Medications Generic Name Dose Route Start Last Admin Trade Name Freq PRN Reason Stop Dose Admin Acetaminophen 650 mg 05/14/23 21:10 05/16/23 23:34 Acetaminophen 325 Mg Tablet PO 650 mg Q6H PRN Administration Mild Pain (1-3) or Fever Hydrocodone Bitart/Acetaminophen 1 tab 05/14/23 21:10 05/17/23 10:46 Hydrocodone/Acetaminophen (*Crx) 5-325 Mg Tablet PO 1 tab Q6H PRN Administration pain of 4-10 Dextrose 12.5 gm 05/14/23 21:10 Dextrose 50% 25 Gm/50 Ml Syringe IV PUSH PRN PRN Hypoglycemia Protocol Glucagon 1 mg 05/14/23 21:10 Glucagon For Inj 1 Mg Vial IM PRN PRN Hypoglycemia Protocol Glucose 15 gm 05/14/23 21:10 Glucose Oral Gel 15 Gm Of Glucse In 37.5 Gm Tube PO PRN PRN Hypoglycemia Protocol Home Med 1 each 05/15/23 06:00 Omnipod Insulin Pump XX 06/14/23 05:59 DAILY@0600 AMBERLY Dextrose 1,000 mls @ 100 mls/hr 05/14/23 21:10 Dextrose 5% 1,000 Ml IVPB PRN PRN Hypoglycemia Protocol Ceftriaxone Sodium 2 gm in 100 mls @ 200 mls/hr 05/15/23 21:00 05/16/23 21:05 Rocephin 2 Gm/Ns 100 Ml IVPB 200 mls/hr Q24H AMBERLY Administration Vancomycin HCl 1,750 mg in 500 mls @ 250 mls/hr 05/16/23 03:00 05/17/23 10:47 Vancomycin 1,750 Mg/Ns 500 Ml IVPB 250 mls/hr Q8H AMBERLY Administration Quetiapine Fumarate 25 mg 05/15/23 21:00 05/16/23 21:05 Quetiapine Fumarate 25 Mg Tablet PO 25 mg QHS AMBERLY Administration Labs Labs: Laboratory Results - last 24 hr 05/16/23 05/16/23 05/17/23 17:06 21:01 02:06 WBC 13.7 H RBC 3.89 L Hgb 11.6 L Hct 33.7 L MCV 86.6 MCH 29.8 MCHC 34.4 RDW 13.2 Plt Count 455 H MPV 8.5 Immature Gran % (Auto) 0.4 Neut % (Auto) 83.3 H Lymph % (Auto) 12.2 L [place] % (Auto) 3.4 Eos % (Auto) 0.0 Baso % (Auto) 0.7 Lymph # (Auto) 1.68 [place] # (Auto) 0.5 Eos # (Auto) 0.0 Baso # (Auto) 0.1 Abs Immat Gran (auto) 0.06 H Absolute Neuts (auto) 11.4 H Absolute Nucleated RBC 0.0 Nucleated RBC % 0.0 Sodium 137 Potassium 4.1 Chloride 104 Carbon Dioxide 24 Anion Gap 9 BUN 9 Creatinine 0.40 L Estim Creat Clear Calc 193 Estimated GFR > 60 Glucose 306 H POC Capillary Glucose 340 H 400 H Calcium 9.2 Magnesium 1.7 Total Bilirubin 0.3 AST 30 ALT 27 Alkaline Phosphatase 119 Total Protein 7.0 Albumin 3.8 Vancomycin Trough 17.0
== END 2023-05-17 18:15 | disposition home or self-care (01) | DRG 383 ==
LOC: ANHED 14:37 → ANH3MED 16:36
PROVIDERS: Physician Assistant; Surgery; Admitting Provider Family Medicine; Emergency Provider Student in an Organized Health Care Education/Training Program; PCP Nurse Practitioner Family; Visit Provider Nurse Practitioner
PROC: 0S9B3ZZ Drainage of Left Hip Joint, Percutaneous Approach (ICD-10-PCS; principal; 2023-05-16 13:30)
DX: L02.31 Cutaneous abscess of buttock (principal); L03.317 Cellulitis of buttock; E10.65 Type 1 diabetes mellitus with hyperglycemia; F32.A Depression, unspecified; F17.290 Nicotine dependence, other tobacco product, uncomplicated; Z79.4 Long term (current) use of insulin
CPT/HCPCS: 36415; 80048; 80053; 80202; 81025; 82010; 82803; 82948; 83605; 83735; 85025; 85027; 86140; 87040; 96360; 99285; A9270; J0692; J0696; J1100; J1200; J1836; J2405; J2704; J3010; J3370; J7120

== ENCOUNTER 2023-06-11 12:11 | Emergency (ER) | payer OTHER, SELFPAY ==
--- NOTE | 2023-06-11 12:14 | ED.EAR ---
HPI - Ear Problem General Chief complaint: Ear Stated complaint: Ear Infection Time Seen by Provider: 06/11/23 12:13 Source: patient Mode of arrival: ambulatory Limitations: no limitations History of Present Illness HPI Narrative: Rama is a 23-year-old female patient presenting to the clinic today with complaints of a possible left ear infection. She reports she has had cold symptoms for the past 4 days. Left ear started hurting yesterday. No known fever or chills. Related Data Home Medications Medication Instructions Recorded Confirmed insulin lispro 100 unit/mL 120 unit continuous subcutaneous 05/14/23 06/11/23 subcutaneous solution (Humalog infusion DAILY U-100 Insulin) Allergies Allergy/AdvReac Type Severity Reaction Status Date / Time No Known Allergies Allergy Mild Verified 06/11/23 12:21 Review of Systems Review of Systems: Pertinent positives per HPI. Patient denies any fever, chills, rash, headache, visual changes, dizziness, sore throat, shortness of breath, chest pain, palpitations, nausea, vomiting, diarrhea, constipation, abdominal pain, or any urinary issues. PMFSH Past Medical History Medical History Anxiety BMI 28.0-28.9,adult Cannabis use disorder, mild, abuse Depression Depression Insomnia Type 1 diabetes mellitus Surgical History Surgical History No pertinent past surgical history Family History Family History Father Diabetes mellitus Depression Hypertension Mother Hypertension Grandparent Hypertension Thyroid disease Renal cell carcinoma Grandparent Hypertension Depression Social History Social History Social History: Surrogate medical decision maker: Chen Barragan, mother. Code status: Full code. Smoking status: Former smoker Tobacco type: e-cigarettes/vaping Second hand tobacco smoke exposure: No Alcohol intake: current Drinks per week: 1 Alcohol use details: socially Substance use: current Substance use type: marijuana Do You Feel Safe in your Home?: Yes Lack of Transportation: No Lack of Food: Never True Current Housing: I Have Housing Concerned About Future Housing: No Difficulty Paying Gas/Electric Bills: No Difficulty Paying for Meds: No Currently Unemployed: No Education: High School Diploma/GED Difficulty w/ Childcare or Family Care: No Additional living arrangements comments: Lives with significant other. 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 Spiritual care concerns: No Comments At the time of my signature, I reviewed and agree with the nursing past medical, surgical, social, and family history. There is no relevant family history pertinent to the patient complaint. Exam Narrative: General: Well-developed, well nourished, in no apparent distress Head: Normocephalic, atraumatic Eyes: Pupils equally round and reactive to light bilaterally, EOM intact, sclera and conjunctive clear, no discharge, lids normal Ears: Right tMs intact and clear, left TM intact, bulging, red, ear canals clear, no drainage, grossly hearing normal. Nose: Nares patent, clear discharge, no inflammation, no sinus tenderness. Mouth: Oropharynx without lesions or masses, good dentition, MMM. Neck: Supple, trachea midline, no enlargement of anterior or posterior cervical nodes, no thyroid masses or goiter palpable. Cardio: Regular rate and rhythm, s1 and s2 normal, no murmur appreciated. Resp: Clear to auscultation bilaterally anteriorly and posteriorly, no rhonchi, rales, wheezing or rubs Course Course Emergency Course: Portions of this record may have been created with voice recognition software. Level of Care: Expr
[2023-06-11 12:17] VITALS: BP 131/84; PULSE 99; RESP 16; TEMP 36.3; O2SAT 100
== END 2023-06-11 12:33 | disposition home or self-care (01) ==
PROVIDERS: Emergency Provider Nurse Practitioner Family; PCP Nurse Practitioner Family
DX: H92.02 Otalgia, left ear (principal); J06.9 Acute upper respiratory infection, unspecified; F17.290 Nicotine dependence, other tobacco product, uncomplicated; E10.9 Type 1 diabetes mellitus without complications
CPT/HCPCS: 99213; G0463

== ENCOUNTER 2023-06-27 09:00 | Outpatient (RCR) | payer OTHER, SELFPAY ==
[2023-05-22 13:29] VITALS: BMI 29.9
--- NOTE | 2023-05-30 10:11 | WPDWOUNDNOTE ---
Wound Care Note Date/Time: 05/30/23 10:11 History: pt c no c/o, reports wound seems to be healing well, fungal infection around wound also improved Wound history: s/p debridement, I and D, washout 05/16 L hip Wound width: 2.4 Wound length: 4 Wound depth: 0.5 Drainage: none Surrounding tissue appearance: healthy, fungal infection largely resolved Tunneling: none Percentage granulation tissue: 100 Dressings: silver rope, antifungal cream Assessment and Plan Assessment and plan (1) Cellulitis and abscess of buttock: Code(s): L02.31 - Cutaneous abscess of buttock; L03.317 - Cellulitis of buttock Status: Acute Assessment and Plan: cont current treatment, f/u 1 mo (2) Type 1 diabetes mellitus with hyperglycemia: Code(s): E10.65 - Type 1 diabetes mellitus with hyperglycemia Status: Acute Assessment and Plan: cont tight bs control Review of Systems Review of Systems: All systems reviewed & are unremarkable except as noted in HPI and below Exam Const: General: cooperative, comfortable and no acute distress Resp: Auscultation: clear to auscultation bilaterally Cardio: Rate: regular rate Rhythm: regular rhythm GI: Inspection: normal to inspection
--- NOTE | 2023-07-12 11:22 | WPDWOUNDNOTE ---
Wound Care Note Date/Time: 06/27/2023 History: wound is healing well Wound history: s/p debridement, I and D, washout 05/16 Wound width: 2.1 Wound length: 3 Wound depth: 0.3 Drainage: serous Surrounding tissue appearance: good granulation Tunneling: none Percentage granulation tissue: 100 Assessment and Plan Assessment and plan (1) Cellulitis and abscess of buttock: Code(s): L02.31 - Cutaneous abscess of buttock; L03.317 - Cellulitis of buttock Status: Acute Assessment and Plan: wound healing well, will dc from wound care at this point, cont local wound care c triple antibiotic ointment, dry dressing Review of Systems Review of Systems: All systems reviewed & are unremarkable except as noted in HPI and below Exam Const: General: cooperative, comfortable and no acute distress Resp: Auscultation: clear to auscultation bilaterally Cardio: Rate: regular rate Rhythm: regular rhythm GI: Inspection: normal to inspection Skin: General skin exam: normal color and no rashes or lesions noted
== END 2023-08-20 23:59 | disposition home or self-care (01) ==
LOC: ANHWOC 09:00
PROVIDERS: PCP Nurse Practitioner Family; Visit Provider Surgery
DX: Z48.817 Encounter for surgical aftercare following surgery on the skin and subcutaneous tissue (principal); E10.65 Type 1 diabetes mellitus with hyperglycemia; E10.622 Type 1 diabetes mellitus with other skin ulcer
CPT/HCPCS: 99213; 99214; A9270; G0463

== ENCOUNTER 2024-01-09 16:23 | Inpatient (IN) | payer OTHER, SELFPAY ==
[2024-01-09] VITALS (12 sets, daily range): BP systolic 114–147; BP diastolic 68–82; PULSE 107–119; RESP 16–25; TEMP 36.4–36.8; O2SAT 99–100; BMI 34.1
--- NOTE | ~2024-01-09 | XR_ITS ---
XR chest 1V portable Ordering provider: Katya Unger MD History: 23 years Female with . hyperglycemia, palpitations . Comparison: April 24, 2020 FINDINGS: MEDIASTINUM: The cardiac silhouette is not enlarged. LUNGS: No infiltrates, effusions or pneumothorax. OTHER: No free air under the diaphragm. IMPRESSION: No acute cardiopulmonary pathology. Reviewed, dictated and finalized at location A.
[2024-01-09 16:30] LABS: Glucose Point of Care 373 mg/dl (65-105)
--- NOTE | 2024-01-09 17:35 | ED.RECABL ---
HPI - Recheck/Abnormal Lab/Rx General Chief Complaint: Recheck/Abnormal Lab/Rx Stated Complaint: 'I think im going into DKA Time Seen by Provider: 01/09/24 16:37 History of Present Illness HPI narrative: 23-year-old female with history of type 1 diabetes presenting with concerns for DKA. States that she has had intractable vomiting since last night which is typical of her episodes of DKA. States that her sugars have been in the 300s today despite taking extra insulin doses on top of her insulin pump. She took her insulin pump before coming in as it was almost out. Complains of palpitations but no chest pain or difficulty breathing. States that she had COVID last month but denies any new URI symptoms. No dysuria or hematuria. No further complaints. Related Data Home Medications Medication Instructions Recorded Confirmed insulin lispro 100 unit/mL 120 unit continuous subcutaneous 05/14/23 11/08/23 subcutaneous solution (Humalog infusion DAILY U-100 Insulin) Allergies Allergy/AdvReac Type Severity Reaction Status Date / Time No Known Allergies Allergy Mild Verified 01/09/24 16:31 Review of Systems Review of Systems: All systems reviewed & are unremarkable except as noted in HPI and below PMFSH Past Medical History Medical History Anxiety BMI 28.0-28.9,adult Cannabis use disorder, mild, abuse Depression Depression Herpes labialis Insomnia Left otitis media Type 1 diabetes mellitus Surgical History Surgical History No pertinent past surgical history Family History Family History Father Diabetes mellitus Depression Hypertension Mother Hypertension Grandparent Hypertension Thyroid disease Renal cell carcinoma Grandparent Hypertension Depression Social History Social History Social History: Surrogate medical decision maker: Chen Barragan, mother. Code status: Full code. Smoking status: Former smoker Second hand tobacco smoke exposure: No Alcohol intake: current Drinks per week: 1 Alcohol use details: socially Substance use: current Substance use type: marijuana Do You Feel Safe in your Home?: Yes Lack of Transportation: No Lack of Food: Never True Current Housing: I Have Housing Concerned About Future Housing: No Difficulty Paying Gas/Electric Bills: No Difficulty Paying for Meds: No Currently Unemployed: No Education: High School Diploma/GED Difficulty w/ Childcare or Family Care: No Additional living arrangements comments: Lives with significant other. 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 Spiritual care concerns: No Exam Narrative: GENERAL: Nontoxic, no acute distress, pleasant cooperative HEAD: Normocephalic, atraumatic. EYES: PERRLA and EOMI. ENT: Grossly unremarkable NECK: Supple. CHEST: Clear to auscultation. No respiratory distress. HEART: Tachycardic, regular rhythm ABDOMEN: Soft, nontender, nondistended EXTREMITIES: Normal range of motion. SKIN: Warm, dry, no rash. NEURO: No focal deficits. Alert and oriented x3. PSYCH: Normal mood and affect. Course Vital Signs Vital signs: Vital Signs Temperature 98.2 F 01/09/24 16:27 Pulse Rate 119 H 01/09/24 16:27 Respiratory Rate 18 01/09/24 16:27 Blood Pressure 147/82 H 01/09/24 16:27 Pulse Oximetry 100 01/09/24 16:27 Temperature 98.2 F 01/09/24 16:27 Pulse Rate 111 H 01/09/24 19:48 Respiratory Rate 23 H 01/09/24 19:48 Blood Pressure 120/82 01/09/24 19:48 Pulse Oximetry 100 01/09/24 19:48 MDM - Recheck/Abnormal Lab/Rx MDM Narrative Medical decision making narrative: 23-year-old female presenting with concerns for DKA. Patient is t
[2024-01-09] MEDS: SODIUM CHLORIDE 0.9% IV 1,000 ML 999 ML IV CONT ×3 (18:09→19:11)
[2024-01-09] MEDS: ONDANSETRON INJ 4 MG/2 ML VIAL IV PUSH ×2 (18:10→19:10)
[2024-01-09 18:20] LABS: Basophils Absolute Auto 0.2 K/mm3 (0.0-0.1); Basophils Percent Auto 0.9 % (0.2-1.2); Eosinophils Absolute Auto 0.1 K/mm3 (0-0.3); Eosinophils Percent Auto 0.3 % (0-4.4); Hematocrit 43.1 % (37.0-47.0); Hemoglobin 14.8 g/dL (12.0-15.0); Immature Granulocyte Absolute 0.09 K/mm3 (0.00-0.031); Immature Granulocyte Percent A 0.5 % (0-0.5); Lymphocytes Absolute Auto 1.48 K/mm3 (0.9-3.2); Lymphocytes Percent Auto 7.6 % (18.3-44.2); Mean Corpuscular HGB Conc 34.3 g/dl (32-36); Mean Corpuscular Hemoglobin 30.4 pg (26-34); Mean Corpuscular Volume 88.5 fl (80-100); Mean Platelet Volume 10.7 fl (7.4-10.4); Monocytes Absolute Auto 0.5 K/mm3 (0.1-0.6); Monocytes Percent Auto 2.7 % (2.6-8.5); Neutrophils Absolute Auto 17.2 K/mm3 (1.3-6.7); Platelet Count Result 475 k/mm3 (150-375); Red Blood Count 4.87 M/mm3 (4.2-5.4); Red Cell Distribution Width 13.2 % (11.5-14.5); White Blood Count 19.5 K/mm3 (4.5-10.0)
[2024-01-09 18:31] LABS: Alanine Aminotransferase 18 U/L (6-35); Albumin Level 5.2 g/dL (3.5-5.1); Alkaline Phosphatase 160 U/L (38-126); Aspartate Amino Transferase 36 U/L (14-36); Bilirubin,Total 1.1 mg/dL (0.2-1.3); Blood Urea Nitrogen 16 mg/dL (7-17); Calcium 9.9 mg/dL (8.4-10.2); Carbon Dioxide < 5 mmol/L (22-30); Chloride 99 mmol/L (98-107); Estimated CRCL calculation 102 ml/min; Estimated Glomerular Filt Rate > 60; Glucose 393 mg/dL (65-110); Lipase 65 U/L (23-300); Magnesium 1.7 mg/dL (1.6-2.3); Potassium 4.7 mmol/L (3.4-5.0); Sodium 135 mmol/L (137-145)
[2024-01-09 18:36] LABS: Add Urine Microscopic? YES; Appearance Urine Clear (Clear); Bacteria Urine Rare /hpf; Bilirubin Urine Negative (Negative); Blood Urine Trace (Negative); Color Urine Yellow (Yellow); Glucose Urine UA 3+ mg/dL (Negative); Ketones Urine 4+ mg/dL (Negative); Leukocyte Esterase Ur Trace LEU/UL (Negative); Need Manual Microscopic Reviewed; Nitrate Urine Negative (Negative); Protein Urine 1+ mg/dL (Negative); RBC Urine 0-2 /hpf (0-2); Specific Grav Ur 1.022 (1.001-1.035); Squamous Epithelial Cell Urine Few /hpf (Few); Urobilinogen Urine 0.2 mg/dL (<2.0); pH Urine 5.5 (5.0-9.0)
[2024-01-09 18:48] LABS: Fractional Inspired Oxygen 21 %; HCO3 VBG 8.2 mEq/l (24.0-30.0)
[2024-01-09 18:50] LABS: Glucose Point of Care 417 mg/dl (65-105)
[2024-01-09 18:50] LABS: PCO2 VBG 25.6 mmHg (42.0-48.0); pH VBG 7.126 (7.300-7.400)
[2024-01-09] MEDS: ACETAMINOPHEN 500 MG TABLET 1000 MG PO (18:55)
[2024-01-09 18:57] LABS: Beta-Hydroxybutyrate/Acetoacetate 6.98 mmol/L (0.02-0.27)
--- NOTE | 2024-01-09 19:03 | PC.NURSE ---
CALLED LAB, ABLE TO ADD ON PHOSPHORS
[2024-01-09 19:19] LABS: Phosphorus 5.5 mg/dL (2.5-4.5)
[2024-01-09] MEDS: cefTRIAXone 2 GM/NS 100 ML 2 GM/100 ML BAG IVPB (19:41)
[2024-01-09] MEDS: INSULIN HUMAN REGULAR (*BKC) 100 UNITS in SODIUM CHLORIDE 0.9% IV 99 ML 8.4 UNITS IV CONT ×2 (19:56→21:58)
[2024-01-09] MEDS: INSULIN HUMAN REGULAR (*BKC) 100 UNITS/ML 13 UNITS IV PUSH (19:57)
[2024-01-09 20:58] LABS: Hemoglobin A1C 9.2 % (<5.7)
[2024-01-09] MEDS: KCL 20 MEQ/D5/0.45% SOD CHL 1,000 ML 150 ML IV CONT (21:59)
[2024-01-09 22:09] LABS: Glucose Point of Care 239 mg/dl (65-105)
[2024-01-09 22:11] LABS: BEDSIDEPREGUCG Negative
--- NOTE | 2024-01-09 22:20 | PM.IMHP ---
H&P: HPI History of Present Illness Date/Time: 01/09/24 22:20 Chief Complaint: High blood sugars, possible DKA Narrative: 23-year-old female with medical history of type 1 diabetes mellitus who presented to the ER for 2 days of high blood sugar. Patient has been type 1 diabetic since 10 years old. She reports she has had improved glucoses since she was started on Omnipod her blood sugars have been better controlled. On review of her insulin records on her Omnipod it appears that the patient's insulin pump she had on the morning of the . She did not replace her site until the middle of the night on the . Her site was again due to be changed today. She did take some extra insulin through her pump but her sugars were still in the 300s. She has been having persistently high glucoses and was having some associated nausea vomiting. She denies any fevers or chills. She was having some dysuria but the dysuria had resolved after she had used some Monistat cream. She finished her treatment of Monistat few days ago. She denies any acute infection that she knows of. She had COVID last month. She has not had any new upper respiratory symptoms. She has been having some palpitations and feeling like her heart is racing but this is not unusual for when her sugars are high. Her last episode of DKA was 2 years ago when she had a abscess on her flank. She reports that she has difficulty sleeping and takes Seroquel. Part of what makes it difficult for to sleep is that she snores infrequently wakes herself up. She has never had a sleep study. Review of Systems Review of Systems: 12 systems were reviewed with pertinent positives and negatives per HPI. Except as documented in the HPI, all other systems were reviewed and are negative. [facility] Past Medical History Medical History (Updated 01/10/24 @ 01:46 by Zoila Rothman DO) Anxiety Cannabis use disorder, mild, abuse Depression Herpes labialis Insomnia Left otitis media Obese Seborrheic dermatitis of scalp Type 1 diabetes mellitus Surgical History Surgical History (Updated 01/10/24 @ 01:31 by Zoila Rothman DO) History of incision and drainage Abscess at insulin pump site May 2023 Family History Family History Father Diabetes mellitus Depression Hypertension Mother Hypertension Grandparent Hypertension Thyroid disease Renal cell carcinoma Grandparent Hypertension Depression Social History Social History Social History: Surrogate medical decision maker: Chen Barragan, mother. Code status: Full code. Smoking status: Former smoker Second hand tobacco smoke exposure: No Alcohol intake: current Drinks per week: 1 Alcohol use details: socially Substance use: current Substance use type: marijuana Do You Feel Safe in your Home?: Yes Lack of Transportation: No Lack of Food: Never True Current Housing: I Have Housing Concerned About Future Housing: No Difficulty Paying Gas/Electric Bills: No Difficulty Paying for Meds: No Currently Unemployed: No Education: High School Diploma/GED Difficulty w/ Childcare or Family Care: No Additional living arrangements comments: Lives with significant other. 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 Spiritual care concerns: No Meds Home Medications and Allergies Home Medications Medication Instructions Recorded Confirmed Type glucagon 3 mg/actuation nasal 3 mg intranasal ONCE PRN 07/25/22 01/09/24 Rx spray (Baqsimi) hypoglycemia #2 ea ketoconazole 2 % shampoo 1 applic topical 2XW PRN 12/12/22 01/09/24 Rx seborrheic dematitis #120 mL glucose 4 gram chewable tablet 16 g PO Q15M PRN hypoglycemia #60 04/17/23 01/09/24 Rx (Dex4 Glucose) tabs insulin lispro 100 unit/mL 0.9 unit continuous s
[2024-01-09 22:50] LABS: Glucose Point of Care 194 mg/dl (65-105)
--- NOTE | 2024-01-09 23:18 | ADMGEN ---
This patient, Rama Fuchs, was admitted to Intensive Care Unit-10 on 01/09/24 at 2230. Patient/family oriented to hospital policies and general routines including ID bracelet, bed and alarms, visiting hours, pain management, procedures, bathroom and other care routines, personal items, smoking policy, room service/diet, and visiting hours. Information on how to activate the Rapid Response Team has been discussed. Patient/Family are encouraged to report perceived risks to care and to ask questions if they do not understand what they are told or what they should do.
[2024-01-10] VITALS (19 sets, daily range): BP systolic 110–165; BP diastolic 58–95; PULSE 85–111; RESP 9–26; TEMP 36.2–36.9; O2SAT 98–100; BMI 34.1
[2024-01-10 00:06] LABS: Glucose Point of Care 180 mg/dl (65-105)
[2024-01-10 00:06] LABS: Anion Gap 20 mmol/L (4-12); Blood Urea Nitrogen 13 mg/dL (7-17); Calcium 8.5 mg/dL (8.4-10.2); Carbon Dioxide 8 mmol/L (22-30); Chloride 109 mmol/L (98-107); Estimated CRCL calculation 121 ml/min; Estimated Glomerular Filt Rate > 60; Glucose 194 mg/dL (65-110); Potassium 4.1 mmol/L (3.4-5.0); Sodium 137 mmol/L (137-145)
[2024-01-10 00:21] LABS: MRSA (PCR) NOT DETECTED (NOT DETECTE)
[2024-01-10 01:04] LABS: Glucose Point of Care 201 mg/dl (65-105)
[2024-01-10] MEDS: INSULIN HUMAN REGULAR (*BKC) 100 UNITS in SODIUM CHLORIDE 0.9% IV 99 ML IV CONT (01:22)
[2024-01-10 02:04] LABS: Glucose Point of Care 246 mg/dl (65-105)
[2024-01-10 02:36] LABS: Anion Gap 18 mmol/L (4-12); Blood Urea Nitrogen 11 mg/dL (7-17); Calcium 8.4 mg/dL (8.4-10.2); Carbon Dioxide 8 mmol/L (22-30); Chloride 108 mmol/L (98-107); Estimated CRCL calculation 140 ml/min; Estimated Glomerular Filt Rate > 60; Glucose 247 mg/dL (65-110); Potassium 4.3 mmol/L (3.4-5.0); Sodium 134 mmol/L (137-145)
[2024-01-10 03:00] LABS: Glucose Point of Care 261 mg/dl (65-105)
[2024-01-10 04:01] LABS: Glucose Point of Care 304 mg/dl (65-105)
[2024-01-10] MEDS: SODIUM CHLORIDE 0.9% IV 1,000 ML 150 ML IV CONT (04:05)
[2024-01-10 05:02] LABS: Glucose Point of Care 260 mg/dl (65-105)
[2024-01-10 05:14] LABS: Anion Gap 15 mmol/L (4-12); Blood Urea Nitrogen 9 mg/dL (7-17); Calcium 8.4 mg/dL (8.4-10.2); Carbon Dioxide 12 mmol/L (22-30); Chloride 108 mmol/L (98-107); Estimated CRCL calculation 140 ml/min; Estimated Glomerular Filt Rate > 60; Glucose 256 mg/dL (65-110); Potassium 4.1 mmol/L (3.4-5.0); Sodium 135 mmol/L (137-145)
[2024-01-10 06:09] LABS: Glucose Point of Care 203 mg/dl (65-105)
[2024-01-10 06:56] LABS: Glucose Point of Care 166 mg/dl (65-105)
[2024-01-10] MEDS: ENOXAPARIN 40 MG/0.4 ML SYRINGE SUB-Q (07:59)
[2024-01-10 08:05] LABS: Glucose Point of Care 166 mg/dl (65-105)
[2024-01-10] MEDS: ACETAMINOPHEN 325 MG TABLET 650 MG PO (08:20)
[2024-01-10 09:07] LABS: Glucose Point of Care 280 mg/dl (65-105)
[2024-01-10 09:54] LABS: Basophils Absolute Auto 0.1 K/mm3 (0.0-0.1); Basophils Percent Auto 0.3 % (0.2-1.2); Eosinophils Percent Auto 0.2 % (0-4.4); Hematocrit 37.6 % (37.0-47.0); Hemoglobin 12.8 g/dL (12.0-15.0); Immature Granulocyte Percent A 0.5 % (0-0.5); Lymphocytes Absolute Auto 2.39 K/mm3 (0.9-3.2); Lymphocytes Percent Auto 12.8 % (18.3-44.2); Mean Corpuscular Hemoglobin 30.3 pg (26-34); Mean Corpuscular Volume 88.9 fl (80-100); Mean Platelet Volume 9.9 fl (7.4-10.4); Monocytes Absolute Auto 1.4 K/mm3 (0.1-0.6); Monocytes Percent Auto 7.3 % (2.6-8.5); Neutrophils Absolute Auto 14.7 K/mm3 (1.3-6.7); Neutrophils Percent Auto 78.9 % (45.5-73.1); Platelet Count Result 431 k/mm3 (150-375); Red Blood Count 4.23 M/mm3 (4.2-5.4); Red Cell Distribution Width 13.7 % (11.5-14.5); White Blood Count 18.7 K/mm3 (4.5-10.0)
[2024-01-10 10:21] LABS: Glucose Point of Care 283 mg/dl (65-105)
[2024-01-10 10:55] LABS: Anion Gap 10 mmol/L (4-12); Blood Urea Nitrogen 7 mg/dL (7-17); Calcium 8.3 mg/dL (8.4-10.2); Carbon Dioxide 15 mmol/L (22-30); Chloride 109 mmol/L (98-107); Estimated CRCL calculation 165 ml/min; Estimated Glomerular Filt Rate > 60; Glucose 272 mg/dL (65-110); Sodium 134 mmol/L (137-145)
--- NOTE | 2024-01-10 11:03 | WPDCNINT ---
Assessment and Plan Assessment and plan (1) DKA, type 1, not at goal: Code(s): E10.10 - Type 1 diabetes mellitus with ketoacidosis without coma Status: Acute Assessment and Plan: Patient presented with nausea, vomiting, abdominal pain, hyperglycemia -in the ED patient's blood sugars were 393 elevated anion gap with metabolic acidosis, elevated beta hydroxybutyrate and ketonuria -patient was given 3 L IV fluid bolus and started on insulin infusion per DKA protocol -patient has been adequately fluid-resuscitated -this morning anion gap is closed, patient will be transition to long-acting insulin and sliding scale insulin -Lantus 30 units subQ with high-dose sliding scale -will start diabetic diet -hemoglobin A1c this admission was 9.2 -simulation educator and dietitian have been consulted (2) Depression: Qualifiers: Depression Type: unspecified Qualified Code(s): F32.9 - Major depressive disorder, single episode, unspecified Code(s): F32.9 - Major depressive disorder, single episode, unspecified Status: Acute Assessment and Plan: Continue quetiapine (3) Anxiety: Code(s): F41.9 - Anxiety disorder, unspecified Status: Acute Assessment and Plan: Continue quetiapine Plan DVT prophylaxis: Enoxaparin Stress ulcer prophylaxis: Not indicated Nutrition: Diabetic diet Code Status: Full code Critical Care Time Spent: 46 minutes Due to a high probability of clinically significant, life threatening deterioration, the patient required my highest level of preparedness to intervene emergently and I personally spent this critical care time directly and personally managing the patient. This critical care time included obtaining a history; examining the patient; pulse oximetry; ordering and review of studies; arranging urgent treatment with development of a management plan; evaluation of patient's response to treatment; frequent reassessment; and discussions with other providers. It was exclusive of separately billable procedures and treating other patients and teaching time. Please see Assessment and Plan section and the rest of the note for further information on patient assessment and treatment This dictation may have been done utilizing a voice recognition system. Attempts have been made to correct errors. However, there may be uncorrected grammatical, spelling, and recognitions errors present. Inset Cutter Consult Note Consult date: 01/10/24 Reason for consult: Diabetic ketoacidosis, nausea, vomiting, hyperglycemia HPI: Rama Fuchs is a 23 year old female with past medical history of diabetes type 1, anxiety, depression, cannabis use disorder presented the ED on 01/09/2024 with complains of intractable vomiting for 1 day prior to admission, blood sugars well greater than 300 at home, patient has been taking extra insulin. She uses an Omnipod which had on 01/07/2024 and she did replace until the night of 01/08/2024. In the ER patient's blood sugars with 373, pH of 7.12, beta hydroxybutyrate was elevated, CO2 was 8, WBC count of 19.5. UA revealed ketones, glucose and possible contamination. Was given 3 L IV fluid bolus in the ER and started on insulin infusion per DKA protocol and transfer the ICU for further management. Patient seen and examined the ICU this morning, states he takes approximately 40 units of insulin through the Omnipod on a daily basis plus additional with meals as needed. Patient denies any nausea, vomiting, abdominal pain. Denies any shortness of breath or chest pain. Is much better. Patient is afebrile, hemodynamically stable, on room air with adequate O2 sats, adequate urine output. Review of Systems Review of Systems: All systems reviewed & are unremarkable except as noted in HPI and below [facility] Past Medical History Medical History (Updated 01/10/24 @ 01:46 by Zoila Rothman, ) Anxiety Cannabis use disorder, mild, abuse Depress
[2024-01-10 11:13] LABS: Glucose Point of Care 272 mg/dl (65-105)
[2024-01-10] MEDS: INSULIN GLARGINE (*BKC) 100 UNITS/ML 30 UNITS SUB-Q (12:15)
[2024-01-10 13:55] LABS: Glucose Point of Care 319 mg/dl (65-105)
--- NOTE | 2024-01-10 14:58 | PC.NURSE ---
Blood sugar done at 1348 with result of 319. accu check done just after she ate lunch when drip being turned off.
--- NOTE | 2024-01-10 15:26 | PM.IMPN ---
Progress Note: A&P Assessment and Plan (1) DKA, type 1, not at goal: Code(s): E10.10 - Type 1 diabetes mellitus with ketoacidosis without coma Status: Acute (2) Depression: Qualifiers: Depression Type: unspecified Qualified Code(s): F32.9 - Major depressive disorder, single episode, unspecified Code(s): F32.9 - Major depressive disorder, single episode, unspecified Status: Acute Assessment and Plan: Continue quetiapine (3) Anxiety: Code(s): F41.9 - Anxiety disorder, unspecified Status: Acute Assessment and Plan: Continue quetiapine Plan #DKA Type 1 -Possible trigged by UTI vs Insulin Pump less insulin reservoir. -in the ED patient's blood sugars were 393 elevated anion gap with metabolic acidosis, elevated beta hydroxybutyrate and ketonuria -patient was given 3 L IV fluid bolus and started on insulin infusion per DKA protocol -patient has been adequately fluid-resuscitated -this morning anion gap is closed, patient will be transition to long-acting insulin and sliding scale insulin -will be downgraded to IMU -Lantus 30 units subQ with high-dose sliding scale -will start diabetic diet -hemoglobin A1c this admission was 9.2 -clinical staff educator and dietitian have been consulted DVT prophylaxis: Enoxaparin Stress ulcer prophylaxis: Not indicated Nutrition: Diabetic diet Code Status: Full code Subjective Date/time seen: 01/10/24 15:26 Interval history: Patient was with resting well. Denies any abdominal pain or dysuria or nausea or vomiting. Currently not on insulin drip. Patient id was able to tolerate the diet. Patient was given 30 units of glargine. Patient sign an gap is closed and patient will be downgraded to IMU. Review of Systems Review of Systems: 12 systems were reviewed with pertinent positives and negatives per HPI. Except as documented in the HPI, all other systems were reviewed and are negative. All systems reviewed & are unremarkable except as noted in HPI and below Exam Narrative: General: Pleasant female in no acute distress HEENT:? Pupils equal and reactive, sclera is clear Neck:? Supple Respiratory:? Clear to auscultation bilaterally, no wheezing, adequate air entry Cardiac:? S1-S2 normal, regular rate and rhythm Abdomen:? Soft, nontender, nondistended normoactive bowel sounds Extremities:? No edema, palpable pedal pulses Neuro:? Patient is awake, alert, oriented, nonfocal Skin:? Warm and dry Psych:? Normal mentation and affect Const: Other: No acute distress, obese, appears stated age HENMT: Other: Mucous membranes are tacky, no oral pharyngeal erythema, crowded posterior oropharynx, good dentition Eyes: Other: Pupils are equal and reactive, mild conjunctival pallor, no scleral icterus Neck: Other: Large neck circumference, no JVD, no lymphadenopathy Resp: Other: Clear to auscultation bilaterally, no increased work of breathing Cardio: Other: Sinus tachycardia, 2+ bilateral radial pedal pulses, no JVD GI: Other: Soft, nontender, nondistended, positive bowel sounds Skin: Other: No jaundice, no pallor, tattoos between fingers Neuro: Other: Alert oriented, speech is clear, no facial asymmetry, no localizing neurologic deficits noted during the course of conversation Extrem: Other: No clubbing, cyanosis, trace edema the ankles, moves all extremities equally Psych: Other: Appropriate mood and affect, pleasant and cooperative Objective Data Vital Signs Vital Signs: Vital Signs - 24 hr 01/09/24 16:27 01/09/24 16:58 01/09/24 16:41 Temperature 98.2 F Pulse Rate 119 H 117 H Respiratory Rate 18 25 H Blood Pressure 147/82 H Pulse Oximetry 100 100 100 Oxygen Delivery 01/09/24 17:00 01/09/24 17:20 01/09/24 17:31 Temperature Pulse Rate 110 H 113 H 113 H Respiratory Rate 16 19 16 Blood Pressure 114/68 Puls
[2024-01-10] MEDS: INSULIN ASPART (*BKC) 100 UNITS/ML SUB-Q (16:38)
[2024-01-10 16:46] LABS: Glucose Point of Care 312 mg/dl (65-105)
--- NOTE | 2024-01-10 19:03 | PC.NURSE ---
This patient, Rama Fuchs, was transferred to [facility] on 01/10/24 at 1850. Personal belongings sent with patient. Report given to Steff. Appropriate documentation sent with patient.
[2024-01-10 20:12] LABS: Glucose Point of Care 390 mg/dl (65-105)
[2024-01-10] MEDS: QUEtiapine FUMARATE 12.5 MG TABLET PO (20:19)
[2024-01-10] MEDS: INSULIN ASPART (*BKC) 100 UNITS/ML 6 UNITS SUB-Q (20:20)
[2024-01-10 20:59] LABS: Anion Gap 11 mmol/L (4-12); Blood Urea Nitrogen 8 mg/dL (7-17); Calcium 8.6 mg/dL (8.4-10.2); Carbon Dioxide 17 mmol/L (22-30); Chloride 105 mmol/L (98-107); Estimated CRCL calculation 140 ml/min; Estimated Glomerular Filt Rate > 60; Glucose 402 mg/dL (65-110); Potassium 4.3 mmol/L (3.4-5.0); Sodium 133 mmol/L (137-145)
[2024-01-11] VITALS (10 sets, daily range): BP systolic 132–145; BP diastolic 74–83; PULSE 75–96; RESP 16–20; TEMP 36.2–36.7; O2SAT 98–100; BMI 34.1
[2024-01-11 04:48] LABS: Basophils Absolute Auto 0.1 K/mm3 (0.0-0.1); Basophils Percent Auto 0.9 % (0.2-1.2); Eosinophils Absolute Auto 0.3 K/mm3 (0-0.3); Eosinophils Percent Auto 3.5 % (0-4.4); Hematocrit 38.5 % (37.0-47.0); Hemoglobin 13.2 g/dL (12.0-15.0); Immature Granulocyte Absolute 0.02 K/mm3 (0.00-0.031); Immature Granulocyte Percent A 0.3 % (0-0.5); Lymphocytes Absolute Auto 2.96 K/mm3 (0.9-3.2); Lymphocytes Percent Auto 38.1 % (18.3-44.2); Mean Corpuscular HGB Conc 34.3 g/dl (32-36); Mean Corpuscular Hemoglobin 30.3 pg (26-34); Mean Corpuscular Volume 88.3 fl (80-100); Mean Platelet Volume 9.6 fl (7.4-10.4); Monocytes Absolute Auto 0.6 K/mm3 (0.1-0.6); Monocytes Percent Auto 8.2 % (2.6-8.5); Neutrophils Absolute Auto 3.8 K/mm3 (1.3-6.7); Platelet Count Result 335 k/mm3 (150-375); Red Blood Count 4.36 M/mm3 (4.2-5.4); White Blood Count 7.8 K/mm3 (4.5-10.0)
[2024-01-11 05:09] LABS: Anion Gap 11 mmol/L (4-12); Blood Urea Nitrogen 6 mg/dL (7-17); Calcium 8.5 mg/dL (8.4-10.2); Carbon Dioxide 18 mmol/L (22-30); Chloride 109 mmol/L (98-107); Estimated CRCL calculation 165 ml/min; Estimated Glomerular Filt Rate > 60; Glucose 243 mg/dL (65-110); Magnesium 1.8 mg/dL (1.6-2.3); Phosphorus 2.1 mg/dL (2.5-4.5); Potassium 3.7 mmol/L (3.4-5.0); Sodium 138 mmol/L (137-145)
[2024-01-11 07:21] LABS: Glucose Point of Care 256 mg/dl (65-105)
--- NOTE | 2024-01-11 09:13 | PC.NURSE ---
RN to bedside for AM assessment. Patient request staff to come back around 1030, patient also refused breakfast.
[2024-01-11] MEDS: ENOXAPARIN 40 MG/0.4 ML SYRINGE SUB-Q (10:11)
[2024-01-11] MEDS: INSULIN GLARGINE (*BKC) 100 UNITS/ML 30 UNITS SUB-Q (10:12)
[2024-01-11] MEDS: INSULIN ASPART (*BKC) 100 UNITS/ML SUB-Q (10:14)
--- NOTE | 2024-01-11 10:30 | PC.NURSE ---
Patient awake, assessment completed. Accuchek completed, patient to order meal now.
[2024-01-11 10:32] LABS: Glucose Point of Care 298 mg/dl (65-105)
--- NOTE | 2024-01-11 11:39 | PC.NURSE ---
MD notified of change in Accuchek times. Ok to discontinue lunch time Accuchek.
--- NOTE | 2024-01-11 12:51 | PM.DS ---
DS: Admitting Diagnosis Discharge Date 01/11/2024 Admitting Diagnosis DKA DS: Discharge Diagnosis Discharge Diagnosis (1) DKA, type 1, not at goal: Code(s): E10.10 - Type 1 diabetes mellitus with ketoacidosis without coma Status: Acute (2) Depression: Qualifiers: Depression Type: unspecified Qualified Code(s): F32.9 - Major depressive disorder, single episode, unspecified Code(s): F32.9 - Major depressive disorder, single episode, unspecified Status: Acute (3) Anxiety: Code(s): F41.9 - Anxiety disorder, unspecified Status: Acute DS: Summary Hospital Course Hospital Course: #DKA Type 1 -patient presented with intractable vomiting night prior to admission. Laboratory evaluation in the ED revealed DKA. She reported worsening glycemia with past few days. Her Omnipod had on 01/07/2024 and did not replace on tell night of 01/08/2024. Reports Possible trigged by UTI vs Insulin Pump less insulin reservoir. -in the ED patient's blood sugars were 393 elevated anion gap with metabolic acidosis, elevated beta hydroxybutyrate and ketonuria -patient was given 3 L IV fluid bolus and started on insulin infusion per DKA protocol -patient has been adequately fluid-resuscitated and anion gap closed and was started are transition to long-acting insulin with sliding scale insulin. 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 She has emergency stock for Lantus and NovoLog at home. DVT prophylaxis: Enoxaparin Stress ulcer prophylaxis: Not indicated Nutrition: Diabetic diet Code Status: Full code Time Spent with Patient Time attestation: Total time spent providing and/or coordinating discharge services: 35 minutes Exam Narrative: General: Pleasant female in no acute distress HEENT:? Pupils equal and reactive, sclera is clear Neck:? Supple Respiratory:? Clear to auscultation bilaterally, no wheezing, adequate air entry Cardiac:? S1-S2 normal, regular rate and rhythm Abdomen:? Soft, nontender, nondistended normoactive bowel sounds Extremities:? No edema, palpable pedal pulses Neuro:? Patient is awake, alert, oriented, nonfocal Skin:? Warm and dry Psych:? Normal mentation and affect DS: Data Data Completed and Pending Labs on day of discharge: Labs from last 24 hours 01/11/24 01/11/24 01/11/24 10:09 07:14 04:25 WBC 7.8 RBC 4.36 Hgb 13.2 Hct 38.5 MCV 88.3 MCH 30.3 MCHC 34.3 RDW 14.0 Plt Count 335 MPV 9.6 Immature Gran % (Auto) 0.3 Neut % (Auto) 49.0 Lymph % (Auto) 38.1 [place] % (Auto) 8.2 Eos % (Auto) 3.5 Baso % (Auto) 0.9 Lymph # (Auto) 2.96 [place] # (Auto) 0.6 Eos # (Auto) 0.3 Baso # (Auto) 0.1 Abs Immat Gran (auto) 0.02 Absolute Neuts (auto) 3.8 Absolute Nucleated RBC 0.000 Nucleated RBC % 0.0 Sodium 138 Potassium 3.7 Chloride 109 H Carbon Dioxide 18 L Anion Gap 11 BUN 6 L Creatinine 0.50 L Estim Creat Clear Calc 165 Estimated GFR > 60 Glucose 243 H POC Capillary Glucose 298 H 256 H Calcium 8.5 Phosphorus 2.1 L Magnesium 1.8 01/10/24 01/10/24 01/10/24 20:25 19:52 16:32 WBC RBC Hgb Hct MCV MCH MCHC RDW Plt Count MPV Immature Gran % (Auto) Neut % (Auto) Lymph % (Auto) [place] % (Auto) Eos % (Auto) Baso % (Auto) Lymph # (Auto) [place] # (Auto) Eos # (Auto) Baso # (Auto) Abs Immat Gran (auto) Absolute Neuts (auto) Absolute Nucleated RBC Nucleated RBC % Sodium 133 L Potassium 4.3 Chloride 105 Carbon Dioxide 17 L Anion Gap 11 BUN 8 Creatinine 0.60 L Estim Creat Clear Calc 140 Estimated GFR > 60 Glucose 402 H POC Capillary Glucose 390 H 312 H Calcium 8.6 Phosphorus Magnesium 01/10/24 13:48 WBC RBC Hgb Hct MCV MCH MCH
--- NOTE | 2024-02-01 14:33 | PCCDE ---
02/01/24 Courtesy DM follow up phone call attempted. Message left including my direct line to return call. YENNI
== END 2024-01-11 13:35 | disposition home or self-care (01) | DRG 420 ==
LOC: ANHED 21:51 → ANHICU 21:53 → ANHIMU 01-10 18:42
PROVIDERS: Internal Medicine; Student in an Organized Health Care Education/Training Program; Admitting Provider Internal Medicine; Emergency Provider Emergency Medicine; PCP Nurse Practitioner Family; Visit Provider Internal Medicine
DX: E10.10 Type 1 diabetes mellitus with ketoacidosis without coma (principal); F32.9 Major depressive disorder, single episode, unspecified; F41.9 Anxiety disorder, unspecified; E66.9 Obesity, unspecified; Z68.34 Body mass index [BMI] 34.0-34.9, adult; Z87.891 Personal history of nicotine dependence
CPT/HCPCS: 36415; 71045; 80048; 80053; 81001; 81025; 82010; 82803; 82948; 83036; 83690; 83735; 84100; 85025; 87086; 87641; 96361; 96374; 96375; 99285; A9270; J0696; J1650; J1815; J2405; J3480; J7030